=== PATIENT | male | born 2000 | race Caucasian/White ===

== ENCOUNTER 2022-04-10 17:38 | Emergency (ER) | payer OTHER, MEDICAID, SELFPAY ==
[2022-04-10 17:50] VITALS: BP 114/73; PULSE 83; RESP 18; TEMP 36.9; O2SAT 99
--- NOTE | 2022-04-10 19:13 | ED.GENADUL_ITS ---
Discharge Plan Disposition Patient Disposition: HOME Condition: Stable Discharge Details Clinical Impression: Laceration of arm Primary Care Provider: Unknown,Unknown ED Provider: Jenny Solis Home Meds and New Rx's Prescriptions: Continued testosterone cypionate 100 mg/mL Oil 50 mg IM DIRECTED Rx Instructions: as a single dose dextroamphetamine-amphetamine [Adderall] 30 mg Tablet 30 mg PO DAILY propranolol 10 mg Tablet 10 mg PO TID Discharge Instructions Instructions: Laceration (ED) Additional Instructions: suture removal in 10 days Keep wound clean and dry Ibuprofen and Tylenol as needed for pain Return spreading redness, fever, worsening pain Discharge Data Discharge Date/Time-TO BE ENTERED AT DEPARTURE: 04/10/22 19:35 Medical Decision Making Patient tolerated procedure without incident Suture removal in 10 days Return precautions discussed and patient expressed understanding Wound care provided by nursing staff Medical Records Medical records reviewed: Yes I reviewed the patient's medical records. Lab Data Lab results reviewed: Yes I reviewed the patient's lab results. HPI General Date/Time Provider Initiated Documentation: 04/10/22 18:17 . HPI Narrative: This 22-year-old male presents with laceration to left shoulder which occurred approximately 2 hours prior to arrival. Denies any additional injuries. Denies any strength or sensation change. Tetanus is reportedly up-to-date. Laceration occurred on a piece of sheet metal as an accident. Related Data Home Medications Medication Instructions Recorded Confirmed dextroamphetamine-amphetamine 30 30 mg PO DAILY 04/10/22 04/10/22 mg tablet (Adderall) propranolol 10 mg tablet 10 mg PO TID 04/10/22 04/10/22 testosterone cypionate 100 mg/mL 50 mg IM DIRECTED 04/10/22 04/10/22 intramuscular oil Allergies Allergy/AdvReac Type Severity Reaction Status Date / Time D and C red no.40 Allergy Unverified 04/10/22 17:56 General Stated Complaint: Laceration ARSH: 3 Review of Systems All systems reviewed & are unremarkable except as noted in HPI and below PFSH All Active Problems (Updated 04/10/22 @ 19:18 by TACHO Abreu) Laceration of arm (Acute) Social History Smoking/Tobacco Use Status: Never Smoking risk assessment performed?: Yes Alcohol Intake: never Drug use: Never Substance use type: does not use Do you feel safe at home: Yes Do you feel safe in your relationship?: Yes Exam Const General: cooperative, comfortable and no acute distress Orientation: alert and oriented x3 Extrem Shoulder/upper arm images: 1. Course Vital Signs Vital signs: Vital Signs Temperature 36.9 C 04/10/22 17:50 Pulse 83 04/10/22 17:50 Respiratory Rate 18 04/10/22 17:50 Blood Pressure 114/73 04/10/22 17:50 Pulse Oximetry 99 04/10/22 17:50 Temperature 36.9 C 04/10/22 17:50 Temperature Source Oral 04/10/22 17:50 Pulse 83 04/10/22 17:50 Respiratory Rate 18 04/10/22 17:50 Respiratory Effort Non-Labored 04/10/22 17:54 Blood Pressure 114/73 04/10/22 17:50 Blood Pressure Position Sitting 04/10/22 17:50 Pulse Oximetry 99 04/10/22 17:50 Oxygen Delivery Method Room Air 04/10/22 17:50 Oxygen Flow Rate 0 04/10/22 17:50 Pain Level 6 04/10/22 17:50 Procedures Laceration Laceration 1: Site: upper extremity Side (If applicable): left Size (cm): 2.5 Local Anesthetic: Lidocaine 1% Amount of anesthesia used (mL): 5 Pre-repair: wound explored and irrigated extensively Skin layer closed with: nylon Size (cm): 5-0 Number of sutures: 4 Technique: horizontal mattress Subcutaneous layer closed with: vicryl Size: 4-0 Number of sutures: 3 Technique: simple, interrupted
[2022-04-10 19:31] VITALS: BP 108/75; PULSE 67; RESP 14; TEMP 36.7; O2SAT 100
== END 2022-04-10 19:35 | disposition home or self-care (01) ==
PROVIDERS: Emergency Provider Physician Assistant
DX: S41.012A Laceration without foreign body of left shoulder, initial encounter (principal); W26.8XXA Contact with other sharp object(s), not elsewhere classified, initial encounter
CPT/HCPCS: 12031; 99281; 99282

== ENCOUNTER 2022-06-24 15:14 | Outpatient (REF) | payer OTHER, MEDICAID, SELFPAY ==
[2022-06-24 19:02] LABS: Abs Immature Grans 0.02 10^3/uL (0.0-0.06); Absolute Basophil Count 0.04 10^3/uL (0.0-0.2); Absolute Eosinophil Count 0.04 10^3/uL (0.0-0.7); Absolute Lymphocyte Count 1.68 10^3/uL (1.2-3.4); Absolute Monocyte Count 0.56 10^3/uL (0.1-0.8); Absolute Neutrophil Count 6.34 10^3/uL (1.2-6.7); Basophils % 0.5; Eosinophils % 0.5; HCT 52.2 % (40.0-50.0); HGB 17.5 g/dL (13.5-17.5); Immature Grans % 0.2; Lymphocytes % 19.4; MCH 30.2 pg (27.0-33.0); MCHC 33.5 % (32.0-36.0); MCV 90 fL (80-95); MPV 10.6 fL (8.0-11.0); Monocytes % 6.5; Neutrophils % 72.9; Platelet Count 370 10^3/uL (130-400); RBC 5.79 10^6/uL (4.36-5.78); RDW 11.8 % (11.8-14.1); RDW-SD 39.2 fL; WBC 8.68 10^3/uL (4.4-10.8)
[2022-06-24 19:25] LABS: ALT 14 U/L (16-63); AST 19 U/L (15-37); Albumin 4.9 g/dL (3.4-5.0); Alkaline Phosphatase 116 U/L (46-116); Anion Gap 9.5 mmol/L (3-11); BUN 11 mg/dL (7-18); Bilirubin, Total 0.4 mg/dL (0.2-1.0); CO2 29.5 mmol/L (21.0-32.0); CREATININE 1.1 mg/dL (0.70-1.30); Calcium 9.9 mg/dL (8.5-10.1); Chloride 101 mmol/L (98-107); Estimated GFR 98.56 (mL/min/1.73m2); FREE T4 0.84 ng/dL (0.76-1.46); Glucose 89 mg/dL (74-106); Potassium 3.8 mmol/L (3.5-5.1); Sodium 140 mmol/L (136-145); TSH 1.86 uIU/mL (0.36-3.74); Total Protein 8.3 g/dL (6.4-8.2)
[2022-06-26 13:28] LABS: ANA Interpretation Negative (Negative)
[2022-07-01 14:08] LABS: Testosterone, Free 28.7 ng/dL (5.25-20.7); Testosterone, Total 909 ng/dL (240-950)
== END 2022-06-24 15:15 | disposition home or self-care (01) ==
LOC: NCHCN 15:14
PROVIDERS: Visit Provider Nurse Practitioner Family
DX: Z87.890 Personal history of sex reassignment (principal); Z79.899 Other long term (current) drug therapy; F41.8 Other specified anxiety disorders; Z79.890 Hormone replacement therapy; M25.59 Pain in other specified joint
CPT/HCPCS: 80053; 84402; 84403; 84439; 84443; 85025; 86038

== ENCOUNTER 2022-08-13 16:35 | Outpatient (REF) | payer OTHER, MEDICAID, SELFPAY ==
[2022-08-13 18:44] LABS: Abs Immature Grans 0.01 10^3/uL (0.0-0.06); Absolute Basophil Count 0.03 10^3/uL (0.0-0.2); Absolute Eosinophil Count 0.07 10^3/uL (0.0-0.7); Absolute Lymphocyte Count 1.15 10^3/uL (1.2-3.4); Absolute Monocyte Count 0.42 10^3/uL (0.1-0.8); Absolute Neutrophil Count 4.57 10^3/uL (1.2-6.7); Basophils % 0.5; Eosinophils % 1.1; HCT 51.4 % (40.0-50.0); HGB 17.3 g/dL (13.5-17.5); Immature Grans % 0.2; Lymphocytes % 18.4; MCH 30.3 pg (27.0-33.0); MCHC 33.7 % (32.0-36.0); MCV 90 fL (80-95); MPV 10.8 fL (8.0-11.0); Monocytes % 6.7; Neutrophils % 73.1; Platelet Count 372 10^3/uL (130-400); RBC 5.71 10^6/uL (4.36-5.78); RDW 11.9 % (11.8-14.1); RDW-SD 39.3 fL; WBC 6.25 10^3/uL (4.4-10.8)
[2022-08-13 20:14] LABS: Hemoglobin A1C 4.8 % (<5.7)
[2022-08-21 13:54] LABS: Testosterone, Free 27.2 ng/dL (5.25-20.7); Testosterone, Total 975 ng/dL (240-950)
== END 2022-08-13 16:36 | disposition home or self-care (01) ==
LOC: NCHCN 16:35
PROVIDERS: Visit Provider Nurse Practitioner Family
DX: R55 Syncope and collapse (principal); Z79.890 Hormone replacement therapy; R59.0 Localized enlarged lymph nodes
CPT/HCPCS: 84402; 84403; 83036; 85025

== ENCOUNTER 2022-10-10 09:45 | Outpatient (RCR) | payer MEDICAID, SELFPAY ==
--- NOTE | 2022-10-10 09:45 | HOLTER_ITS ---
APPROVED REPORT Conclusion This is a 48-hour Holter monitor ordered for tachycardia and syncope Rhythm throughout was sinus. Average heart rate was 84. Minimum was 46, maximum 178 There were very rare isolated atrial premature beats There were no ventricular dysrhythmias There is no atrial fibrillation, no SVT, no high-grade AV block, no pauses greater than 3 seconds A total of 6 pages of symptoms was reported Overall symptoms of racing heartbeat appear to correspond to sinus tachycardia which was frequently p resent during waking hours and had rates ranging from 110-156
== END 2022-11-01 23:59 | disposition home or self-care (01) ==
LOC: CARDOPNVT 09:45
PROVIDERS: Visit Provider Nurse Practitioner Family
DX: R00.0 Tachycardia, unspecified (principal); R55 Syncope and collapse
CPT/HCPCS: 93225; 93226

== ENCOUNTER 2022-10-24 03:33 | Outpatient (CLI) | payer MEDICAID, SELFPAY ==
--- NOTE | 2022-10-24 | DI.US_ITS ---
APPROVED REPORT EXAM: Comprehensive 2D, Doppler, and color-flow Echocardiogram Patient Location: Out-Patient Special Delivery Worker: Maria C Lucia RDCS (AE) Indications: Tachycardia, near syncope Other Information Study Quality: Adequate Conclusion Normal left ventricular wall thickness and chamber size. Estimated ejection fraction is 55 to 60%. Wall motion is normal Normal right ventricular size and systolic function Both atria are normal in size Mildly thickened mitral leaflets with trace regurgitation Estimated right ventricular systolic pressure is 13 mmHg Wall motion Left Ventricle The left ventricle is normal size. The left ventricular systolic function is normal. The left ventric ular ejection fraction is within the normal range. There is normal left ventricular wall thickness. T here is normal LV segmental wall motion. There is no ventricular septal defect visualized. LVEF is 56 %. Right Ventricle The right ventricle is normal size. The right ventricular systolic function is normal. The RVSP is 13 .0 mmHg. Atria The left atrium size is normal. The right atrium size is normal. The interatrial septum is intact wit h no evidence for an atrial septal defect. Aortic Valve The aortic valve is normal in structure. Aortic valve is trileaflet. There is no aortic valvular sten osis. No aortic regurgitation is present. Mitral Valve Mildly thickened mitral leaflets No evidence of mitral valve stenosis. Trace mitral regurgitation. Tricuspid Valve The tricuspid valve is normal in structure. There is no tricuspid valve stenosis. Trace tricuspid reg urgitation. Pulmonic Valve The pulmonary valve is normal in structure. There is no pulmonic valvular stenosis. Trace pulmonic re gurgitation. Great Vessels The aortic root is normal in size. The ascending aorta is normal in size. Aortic arch is normal in ca liber. IVC is normal in size and collapses >50% with inspiration. Pericardium There is no pericardial effusion. 2D Dimensions IVSD d PLAX 0.74 cm F: 0.6-1.0 LV Vol A2C d MOD 88.3 mL LVPW d PLAX 0.77 cm F: 0.6 - 1.0 LV Vol A4C d MOD 85.5 mL LVID d PLAX 4.50 cm F: 3.8 - 5.2 LA Area A4C s MOD 11.86 cm2 LVDs 3.15 cm F: 2.2 - 3.5 LA Area A2C s MOD 14.61 cm2 Ao Root d 2.27 cm F: 2.7 - 3.3 LV EF A4C MOD 55.4 % RA Area A4C 7.57 cm2 LV EF A2C MOD 56.0 % Ao Asc Diam d 2.38 cm F: 2.3 - 3.1 LV EF Biplane MOD 54.9 % LV EF Teichholz 56.0 % SV 47.52 mL LVEF ([facility]) 54.86 % F: 54 - 74 LV Volume 86.63 mL F: 46 - 106 LV Volume Index 53.47 mL/m2 F: 29 - 61 LV Vol Biplane MOD 86.6 mL FS 29.10 % M-Mode TAPSE 1.60 cm (M/F) >1.7 LV Diastology MV E' medial 0.093 (>0.07 m/s) E/A Ratio 1.6 LV E/e MED 6.85 (<14) MV E Vmax 0.64 (0.4-1.3 m/s) MV E' lateral 0.174 (>0.1 m/s) MV A Vmax 0.40 (0.4-1.3 m/s) LV E/e LAT 3.65 (<14) MV E/A Ratio 1.44 MV E/E' medial 6.88 MV E/E' lateral 3.68 Aortic Valve LVOT Area 2.89 cm2 AoV Area Vmax 2.80 cm2 LVOT Vmax 0.95 m/s RODY Mean Marlo. 2.52 cm2 LVOT Mean Marlo. 0.62 m/s LVOT Peak Grad 3.6 mmHg LVOT Mean Grad 1.8 mmHg LVOT VTI 0.194 m LVOT Diam s 1.90 cm AoV Vmax 0.98 m/s Velocity Ratio 0.97 AoV Mean Marlo. 0.71 m/s AoV Peak Grad 3.9 mmHg LVOT SV 56.07 mL AoV Mean Grad 2.2 mmHg AoV VTI 0.199 m AoV Area VTI 2.81 cm2 Mitral Valve MV DT 147 (160-240 msec) MV PHT 43 msec MV Area PHT 5.16 cm2 MV VTI 0.209 m MV Area VTI 2.68 (4.0-6.0 cm2) Pulmonary Valve PV Vmax 0.83 (0.5-1.5 m/s) RVOT Peak Gr. 2.16 mmHg PV Peak Grad 2.7 mmHg RVOT Mean Gr. 1.05 mmHg PV Mean Grad 1.6 mmHg RVOT VTI 0.153 m PV VTI 0.175 m RVOT Vmax 0.74 m/s Tricuspid Valve TR Peak Grad 9.9 mmHg TR Vmax 1.58 m/s RA Pressure 3.00 mmHg RVSP (TR) 13.0 mmHg
== END 2022-10-24 03:53 ==
PROVIDERS: Visit Provider Nurse Practitioner Family
DX: R00.0 Tachycardia, unspecified (principal); R55 Syncope and collapse
CPT/HCPCS: 93306

== ENCOUNTER 2022-11-15 08:53 | Outpatient (RCR) | payer MEDICAID, SELFPAY ==
--- NOTE | 2022-11-15 08:45 | HOLTER_ITS ---
APPROVED REPORT Conclusion This is a 48-hour Holter monitor Rhythm throughout was sinus with an average heart rate of 78. Minimum was 45, maximum 139 There were no ventricular dysrhythmias There were rare atrial premature beats There was no atrial fibrillation no SVT no pauses greater than 3 seconds no high-grade AV block
== END 2022-12-01 23:59 | disposition home or self-care (01) ==
LOC: CARDOPNVT 08:53
PROVIDERS: Visit Provider Nurse Practitioner Family
DX: R55 Syncope and collapse (principal); R00.0 Tachycardia, unspecified
CPT/HCPCS: 93225; 93226

== ENCOUNTER 2023-01-02 14:10 | Outpatient (REF) | payer MEDICAID, SELFPAY ==
[2023-01-02 15:16] LABS: Bilirubin Negative (Negative); Blood Negative (Negative); Clarity Clear (Clear); Glucose Negative (Negative); Ketones Negative (Negative); Leukocyte Esterase Negative (Negative); Nitrite Negative (Negative); Urobilinogen 0.2 mg/dL (Up to 0.2)
== END 2023-01-02 14:11 | disposition home or self-care (01) ==
LOC: NCHCN 14:10
PROVIDERS: Visit Provider Nurse Practitioner Family
DX: R35.0 Frequency of micturition (principal); R30.0 Dysuria
CPT/HCPCS: 81003

== ENCOUNTER 2023-01-03 19:16 | Outpatient (REF) | payer MEDICAID, SELFPAY ==
[2023-01-03 19:30] LABS: HCT 48.4 % (36.0-46.0); HGB 16.2 g/dL (11.2-15.7); MCH 30.7 pg (27.0-33.0); MCHC 33.5 % (32.0-36.0); MCV 92 fL (80-95); MPV 10.2 fL (8.0-11.0); Platelet Count 347 10^3/uL (130-400); RBC 5.28 10^6/uL (3.93-5.22); RDW 12.5 % (11.7-14.6); RDW-SD 42.3 fL; WBC 6.64 10^3/uL (4.4-10.8)
[2023-01-03 19:49] LABS: ALT 26 U/L (14-59); AST 22 U/L (15-37); Albumin 4.5 g/dL (3.4-5.0); Alkaline Phosphatase 122 U/L (46-116); Anion Gap 5.9 mmol/L (3-11); BUN 10 mg/dL (7-18); Bilirubin, Total 0.6 mg/dL (0.2-1.0); CO2 30.1 mmol/L (21.0-32.0); Calcium 9.9 mg/dL (8.5-10.1); Chloride 102 mmol/L (98-107); Estimated GFR 82.71 (mL/min/1.73m2); Glucose 58 mg/dL (74-106); Potassium 3.9 mmol/L (3.5-5.1); Sodium 138 mmol/L (136-145); TSH (W/Ref FT4) 0.97 uIU/mL (0.36-3.74); Total Protein 7.3 g/dL (6.4-8.2)
[2023-01-12 14:45] LABS: Testosterone, Free 11.1 ng/dL (<0.13-1.08); Testosterone, Total 325 ng/dL (8-60)
== END 2023-01-03 19:17 | disposition home or self-care (01) ==
LOC: NCHCN 19:16
PROVIDERS: Visit Provider Nurse Practitioner Family
DX: L65.9 Nonscarring hair loss, unspecified (principal); Z79.890 Hormone replacement therapy; R00.0 Tachycardia, unspecified; R35.0 Frequency of micturition; Z87.890 Personal history of sex reassignment; Z79.899 Other long term (current) drug therapy
CPT/HCPCS: 80053; 84402; 84403; 85027; 84443

== ENCOUNTER 2023-01-27 08:20 | Outpatient (CLI) | payer MEDICAID, SELFPAY | END 2023-01-27 08:21 | disposition home or self-care (01) | PROVIDERS: Visit Provider Nurse Practitioner Family | DX: R00.0 Tachycardia, unspecified (principal) | CPT/HCPCS: 93270 ==

== ENCOUNTER 2023-02-06 12:38 | Outpatient (REF) | payer MEDICAID, SELFPAY ==
[2023-02-10 14:26] LABS: IgA 94 mg/dL (85-499); Interpretation (See Note); Tissue Transglutaminase IgA <1.2 U/mL (<4.0)
== END 2023-02-06 12:39 | disposition home or self-care (01) ==
LOC: NCHCN 12:38
PROVIDERS: Visit Provider Nurse Practitioner Family
DX: R19.7 Diarrhea, unspecified (principal)
CPT/HCPCS: 82784; 83516

== ENCOUNTER 2023-02-07 18:39 | Emergency (ER) | payer MEDICAID, SELFPAY ==
--- NOTE | 2023-02-07 18:30 | RT.EKG_ITS ---
APPROVED REPORT Exam: Resting ECG Reason for Exam: Tachycardia Patient Location: E HR:102 bpm ECG Measurements Heart Rate 102 AXIS FL 134 P 51 QRSd 87 QRS 79 QT 341 T 40 QTc 445 Conclusion Sinus tachycardia...rate> 99 sinus tachycardia, conider inferior lateral st depressions
[2023-02-07 18:43] VITALS: BP 133/79; PULSE 130; RESP 22; TEMP 36.6; O2SAT 99
--- NOTE | 2023-02-07 19:00 | DI.CT_ITS ---
Exam(s) CT CHEST PE CTA EXAM: CT CHEST PE CTA CLINICAL HISTORY: tachycardia, near syncope, sob, abdnormal ekg. TECHNIQUE: Imaging Protocol: Axial CT angiography was performed with multi-slice acquisition and mu lti-planar reconstructions as well as axial, coronal and sagittal MIP reconstructions. CONTRAST MATERIAL: Intravenous: Omnipaque 350 Contrast volume:100 ml COMPARISON: No exams were available for comparison FINDINGS: Pulmonary Arteries: No evidence of filling defect to suggest pulmonary emboli. Tracheobronchial tree: Patent where visualized. Mediastinum and Andreia: No dominant adenopathy or fluid collection. Pulmonary parenchyma: No consolidation or dominant measurable mass. Pleura: No effusion or pneumothorax. Heart: The heart is not dilated. No coronary artery calcifications are seen. Aorta: Thoracic aorta non-dilated. No aneurysm. No dissection. Upper abdomen: Unremarkable. Bones: Unremarkable for age. IMPRESSION: No evidence of pulmonary embolism. No pulmonary acute abnormality. RADIATION DOSE DELIVERED: 292.22mGy.cm Total DLP DATA REPOSITORY: All CT scans at this facility are submitted to the National Radiology Data Registry (NRDR) Dose Index Registry (DIR) with the [employer] (ACR). RADIATION OPTIMIZATION: All CT scans at this facility use at least one of these dose optimization te chniques: automated exposure control; mA and/or kV adjustment per patient size (includes targeted exa ms where dose is matched to clinical indication); or iterative reconstruction.
--- NOTE | 2023-02-07 19:14 | W.ED.GENAD ---
Discharge Plan Disposition Patient Disposition: Home Condition: Improving Discharge Details Chief Complaint: Arrhythmia Clinical Impression: Hypokalemia, Tachycardia Primary Care Provider: Ginger Martinez ED Provider: Luis A Jurado Home Meds and New Rx's Prescriptions: No Action testosterone cypionate 100 mg/mL Oil 50 mg IM DIRECTED Rx Instructions: as a single dose dextroamphetamine-amphetamine [Adderall] 30 mg Tablet 30 mg PO DAILY Rx Instructions: no longer taking propranolol 10 mg Tablet 10 mg PO TID PRN fluoxetine 20 mg Tablet 20 mg PO DAILY metoprolol tartrate 25 mg Tablet 25 mg PO DAILY Zyrtec 10 mg Capsule 10 mg PO DAILY Discharge Instructions Instructions: Hypokalemia (ED) Additional Instructions: Please follow-up with your primary care physician and cardiology. Please return to the emergency department for any worsening symptoms Medical Decision Making 23-year-old trans male presents with recurrent palpitations shortness of breath paresthesias lightheadedness has been ongoing for weeks to months currently undergoing Holter monitor evaluation, lightheadedness and symptomatology developed while standing at work this evening at [employer] per partner patient's skin color also changes during these events to a purple color involving the chest and lower extremities. No history of coronary disease no history of thromboembolic disease. No recent travel or hospitalization. Patient is alert oriented interactive no respiratory distress lungs clear bilaterally, sinus tachycardia on monitor and EKG with evidence of depressions inferior and anterior leads consider slight elevation in aVR. Must consider PE versus pericarditis versus myocarditis versus electrolyte abnormality versus orthostatic versus POTS versus less likely infection. Screening labs imaging fluids close reassessment 21: 56 likely resolving dehydration hypokalemia. Feeling much better. Heart rate now 86 bpm. Following up closely with primary care and cardiology for Holter monitor interpretation HPI General Date/Time Provider Initiated Documentation: 02/07/23 18:45. HPI Narrative: 23-year-old trans male presents with recurrent tachycardia lightheadedness shortness of breath paresthesias to fingers and face and skin changes characterized by purple discoloration of chest and legs during events, worse when standing, currently undergoing Holter monitor. Has had extensive work-up in the past without definitive diagnosis. No prior CT scan per patient. Related Data Home Medications Medication Instructions Recorded Confirmed dextroamphetamine-amphetamine 30 30 mg PO DAILY 04/10/22 04/10/22 mg tablet (Adderall) propranolol 10 mg tablet 10 mg PO TID PRN 04/10/22 02/07/23 testosterone cypionate 100 mg/mL 50 mg IM DIRECTED 04/10/22 02/07/23 intramuscular oil cetirizine 10 mg capsule (Zyrtec) 10 mg PO DAILY 02/07/23 02/07/23 fluoxetine 20 mg tablet 20 mg PO DAILY 02/07/23 02/07/23 metoprolol tartrate 25 mg tablet 25 mg PO DAILY 02/07/23 02/07/23 Allergies Allergy/AdvReac Type Severity Reaction Status Date / Time aloe vera Allergy Hives Unverified 02/07/23 18:55 D and C red no.40 Allergy Unverified 02/07/23 18:55 General Stated Complaint: Arrhythmia ARSH: 3 Review of Systems Narrative: Review of Systems Constitutional: negative Eyes: negative ENT: negative Cardiovascular: Palpitations Respiratory: Shortness of breath Gastrointestinal: negative : negative Musculoskeletal: negative Skin: negative Neurologic: Paresthesias Psych: negative PFSH All Active Problems (Updated 02/07/23 @ 21:57 by Luis A Jurado MD) Hypokalemia (Acute) Tachycardia (Acute) Social History Smoking/Tobacco Use Status: Never Smoking risk assessment performed?: Yes Alcohol Intake: never Drug use: Never Substance use type: does not use Housing: apartment Do you feel safe at home: Yes Do you feel safe in your relationship?: Yes Exam Narrative Exam Narrative: Physical Examination General: alert, awake, cooperative, resting comfortably, no acute distress HEENT: normocephalic, atraumatic; PERRL, EOM intact, conjunctiva normal; no nasal discharge; moist mucous membranes, oral and pharyngeal mucosa normal, tolerating secretions Neck: supple, trachea midline; full ROM Chest: normal to inspection Respiratory: normal respiratory effort, speaking in full sentences, clear to auscultation, no wheezing, rales or rhonchi Cardiac: Tachycardia, regular rhythm, S1S2 intact, no murmurs rubs or gallops GI: abdomen soft, non-tender, non-distended; no palpable mass or hepatosplenomegaly Skin: no lesions, rashes or trauma appreciated Neuro: AAOx3, normal speech, moving all extremities Extremities: No peripheral edema Psych: Appropriate mood and affect Course Vital Signs Vital signs: Vital Signs Temperature 36.6 C 02/07/23 18:43 Pulse 130 H 07/07/23 18:43 Respiratory Rate 22 02/07/23 18:43 Blood Pressure 133/79 02/07/23 18:43 Pulse Oximetry 99 02/07/23 18:43 Temperature 36.6 C 02/07/23 18:43 Temperature Source Oral 02/07/23 18:43 Pulse 130 H 02/07/23 18:43 Respiratory Rate 22 02/07/23 18:43 Blood Pressure 133/79 02/07/23 18:43 Blood Pressure Position Supine 02/07/23 18:43 Pulse Oximetry 99 02/07/23 18:43 Oxygen Delivery Method Room Air 02/07/23 18:43 Oxygen Flow Rate 0 02/07/23 18:43 Pain Level 0 02/07/23 18:43
[2023-02-07 19:35] LABS: Bilirubin Negative (Negative); Blood Negative (Negative); Clarity Clear (Clear); Glucose Negative (Negative); Ketones Trace mg/dL (Negative); Leukocyte Esterase Trace (Negative); Nitrite Negative (Negative)
[2023-02-07] MEDS: Normal Saline - Diluent 50 ML VIAL IJ (19:37)
[2023-02-07] MEDS: Omnipaque 350 MG/ML 100 ML BTL IJ (19:37)
[2023-02-07 19:42] LABS: Bacteria Few HPF (Negative); C & S Indicated? Yes; Casts Negative LPF (Negative); Crystals Negative HPF (Negative); Epithelial Cells Few HPF (Negative); Mucus Negative (Negative); RBC 0-2 HPF (0-2)
[2023-02-07 19:55] LABS: Abs Immature Grans 0.01 10^3/uL (0.0-0.06); Absolute Basophil Count 0.03 10^3/uL (0.0-0.2); Absolute Eosinophil Count 0.12 10^3/uL (0.0-0.7); Absolute Lymphocyte Count 1.64 10^3/uL (1.2-3.4); Absolute Monocyte Count 0.75 10^3/uL (0.1-0.8); Absolute Neutrophil Count 6.06 10^3/uL (1.2-6.7); Basophils % 0.3; Eosinophils % 1.4; HCT 47.6 % (36.0-46.0); HGB 16.5 g/dL (11.2-15.7); Immature Grans % 0.1; MCH 30.8 pg (27.0-33.0); MCHC 34.7 % (32.0-36.0); MCV 89 fL (80-95); MPV 9.4 fL (8.0-11.0); Monocytes % 8.7; Neutrophils % 70.5; Platelet Count 319 10^3/uL (130-400); RBC 5.35 10^6/uL (3.93-5.22); RDW 11.9 % (11.7-14.6); RDW-SD 38.5 fL; WBC 8.61 10^3/uL (4.4-10.8)
[2023-02-07 20:08] LABS: PTT Activated 25.9 sec (21.5-31.9); Prothrombin Time 10.4 sec (9.3-11.0)
--- NOTE | 2023-02-07 20:09 | DI.VRAD_ITS ---
PROCEDURE INFORMATION: Exam: CTA Chest With Contrast Exam date and time: 02/07/2023 19:32 Age: 23 years old Clinical indication: Other: Tachcardia, near sycope, SOB, abnormal ekg; Prior surgery; Surgery date: 6+ months; Surgery type: Top surgery TECHNIQUE: Imaging protocol: Computed tomographic angiography of the chest with contrast. Exam focused on the arteries. 3D rendering (Not supervised by radiologist): MIP and/or 3D reconstructed images were created by the technologist. Contrast material: 350; Contrast volume: 100 ml; Contrast route: INTRAVENOUS (IV); COMPARISON: No relevant prior studies available. FINDINGS: Pulmonary arteries: No pulmonary emboli. Aorta: No aortic aneurysm. No aortic dissection. Lungs: Motion artifact in the lungs. No airspace consolidation. No suspicious pulmonary nodules or mass lesions. Pleural spaces: No pneumothorax. No pleural effusion. Heart: No cardiomegaly. No pericardial effusion. Lymph nodes: No enlarged lymph nodes. Bones/joints: No acute fracture. Soft tissues: Bilateral mastectomy. IMPRESSION: No pulmonary emboli are seen. No focal pathology Dictated and Authenticated by: Tish Franklin MD. Ordering:BIPIN Gunn MD
[2023-02-07] MEDS: Normal Saline 1,000 ML 1000 ML IV (20:18)
[2023-02-07 20:19] LABS: ALT 17 U/L (14-59); AST 20 U/L (15-37); Albumin 4.5 g/dL (3.4-5.0); Alkaline Phosphatase 114 U/L (46-116); BUN 15 mg/dL (7-18); Bilirubin, Total 0.3 mg/dL (0.2-1.0); CREATININE 1.1 mg/dL (0.55-1.02); Calcium 9.1 mg/dL (8.5-10.1); Chloride 102 mmol/L (98-107); Estimated GFR 73.31 (mL/min/1.73m2); Glucose 99 mg/dL (74-106); Magnesium 1.8 mg/dL (1.8-2.4); NT-proBNP 57 pg/mL (<300); Sodium 141 mmol/L (136-145); TSH (W/Ref FT4) 3.65 uIU/mL (0.36-3.74); Total Protein 7.6 g/dL (6.4-8.2); Troponin I < 50 ng/L (<or=60)
[2023-02-07] MEDS: Potassium Chloride 10 MEQ TABCR PO (20:50)
[2023-02-07] MEDS: POTASSIUM CHLORIDE 10 MEQ/100 ML BAG 100 MEQ IVPB (20:51)
[2023-02-07 22:00] VITALS: BP 102/54; PULSE 69; RESP 16; TEMP 36.6; O2SAT 97
--- NOTE | 2023-02-07 22:00 | RT.EKG_ITS ---
APPROVED REPORT Exam: Resting ECG Reason for Exam: discharge Patient Location: E HR:60 bpm ECG Measurements Heart Rate 60 AXIS IA 143 P 46 QRSd 82 QRS 78 QT 399 T 40 QTc 398 Conclusion Sinus rhythm...normal P axis, V-rate 60- 99 Atrial premature complex...SV complex w/ short R-R interval No STEMI Normal Electrocardiogram
== END 2023-02-07 22:16 | disposition home or self-care (01) ==
PROVIDERS: Emergency Provider Emergency Medicine; PCP Nurse Practitioner Family
DX: E87.6 Hypokalemia (principal); R00.0 Tachycardia, unspecified; R06.02 Shortness of breath
CPT/HCPCS: 71275; 80053; 80307; 81025; 93005; 96365; 99284; 81003; 81015; 83735; 83880; 84443; 84484; 85025; 85610; 85730; 87086; 93010; J3480; J3490

== ENCOUNTER 2023-02-09 12:34 | Outpatient (REF) | payer MEDICAID, SELFPAY ==
[2023-02-09 13:26] LABS: C Diff PCR Negative (Negative)
[2023-02-11 19:47] LABS: Campylobacter PCR Negative (Negative); Salmonella PCR Negative (Negative); Shiga Toxin PCR Negative (Negative); Shigella/Enteroinvasive Ecoli Negative (Negative)
== END 2023-02-09 12:35 | disposition home or self-care (01) ==
LOC: NCHCN 12:34
PROVIDERS: PCP Nurse Practitioner Family; Visit Provider Nurse Practitioner Family
DX: R19.7 Diarrhea, unspecified (principal)
CPT/HCPCS: 87493; 87505

== ENCOUNTER 2023-02-14 15:17 | Outpatient (REF) | payer MEDICAID, SELFPAY ==
[2023-02-14 15:50] LABS: Potassium 4.3 mmol/L (3.5-5.1)
[2023-02-14 15:54] LABS: Abs Immature Grans 0.02 10^3/uL (0.0-0.06); Absolute Basophil Count 0.05 10^3/uL (0.0-0.2); Absolute Eosinophil Count 0.22 10^3/uL (0.0-0.7); Absolute Lymphocyte Count 1.73 10^3/uL (1.2-3.4); Absolute Monocyte Count 0.53 10^3/uL (0.1-0.8); Absolute Neutrophil Count 3.63 10^3/uL (1.2-6.7); Basophils % 0.8; Eosinophils % 3.6; HCT 47.5 % (36.0-46.0); HGB 16.3 g/dL (11.2-15.7); Immature Grans % 0.3; MCHC 34.3 % (32.0-36.0); MCV 91 fL (80-95); MPV 10.5 fL (8.0-11.0); Monocytes % 8.6; Neutrophils % 58.7; Platelet Count 319 10^3/uL (130-400); RBC 5.25 10^6/uL (3.93-5.22); RDW-SD 40.1 fL; WBC 6.18 10^3/uL (4.4-10.8)
== END 2023-02-14 15:18 | disposition home or self-care (01) ==
LOC: NCHCN 15:17
PROVIDERS: PCP Nurse Practitioner Family; Visit Provider Nurse Practitioner Family
DX: E87.6 Hypokalemia (principal); R21 Rash and other nonspecific skin eruption
CPT/HCPCS: 84132; 85025

== ENCOUNTER 2023-03-03 13:20 | Outpatient (CLI) | payer MEDICAID, SELFPAY ==
--- NOTE | 2023-03-03 13:31 | W.CARDEVENT ---
Date of service: 03/03/23 Time of Service: 13:31 Cardiac Event Recorder Referring Provider:: Ginger Martinez Indications:: Tachycardia and syncope Cardiac Event Note: This is a cardiac event monitor. Patient was monitored for 29 days and 15 hours Rhythm throughout was sinus. Average heart rate was 66. Minimum was 50, maximum was 144 There were no ventricular or supraventricular dysrhythmias. There was no atrial fibrillation or SVT. There was no high-grade AV block, no pauses greater than 3 seconds Multiple patient symptoms were reported. The vast majority corresponded to sinus rhythm with heart rates 70-80. Rarely symptoms corresponded to sinus tachycardia with heart rates 10 5-1 10.
== END 2023-03-03 13:21 | disposition home or self-care (01) ==
LOC: CARDOPNVT 13:20
PROVIDERS: PCP Nurse Practitioner Family; Visit Provider Internal Medicine Cardiovascular Disease
DX: R55 Syncope and collapse (principal); R00.0 Tachycardia, unspecified

== ENCOUNTER 2023-05-19 11:56 | Outpatient (REF) | payer OTHER, SELFPAY ==
[2023-05-19 16:16] LABS: HCT 49.8 % (36.0-46.0); HGB 16.6 g/dL (11.2-15.7); MCH 30.2 pg (27.0-33.0); MCHC 33.3 % (32.0-36.0); MCV 91 fL (80-95); MPV 10.6 fL (8.0-11.0); Platelet Count 335 10^3/uL (130-400); RBC 5.49 10^6/uL (3.93-5.22); RDW 11.7 % (11.7-14.6); RDW-SD 39.3 fL; WBC 5.12 10^3/uL (4.4-10.8)
[2023-06-06 10:09] LABS: Testosterone, Free 22.5 ng/dL (<0.13-1.08); Testosterone, Total 611 ng/dL (8-60)
== END 2023-05-19 11:57 | disposition home or self-care (01) ==
LOC: NCHCN 11:56
PROVIDERS: PCP Nurse Practitioner Family; Visit Provider Nurse Practitioner Family
DX: F64.9 Gender identity disorder, unspecified (principal); Z51.81 Encounter for therapeutic drug level monitoring
CPT/HCPCS: 84402; 84403; 85027

== ENCOUNTER 2023-08-22 20:05 | Emergency (ER) | payer OTHER, SELFPAY ==
[2023-08-22 20:09] VITALS: BP 145/89; PULSE 77; RESP 18; TEMP 36.5; O2SAT 99
[2023-08-22 20:17] VITALS: RESP 18
--- NOTE | 2023-08-22 20:30 | DI.RAD_ITS ---
Exam(s) XR CHEST 2V PA LATERAL EXAM: XR CHEST 2V PA LATERAL CLINICAL HISTORY: low O2 sat at home TECHNIQUE: 2D digital imaging was performed. COMPARISON: No exams were available for comparison FINDINGS: HEART: Normal size. Aorta: Not dilated. PULMONARY VASCULATURE: Normal. LUNGS: Clear. PLEURAL SPACE: No pleural effusion or pneumothorax. BONE:Unremarkable for age. Soft tissues: Unremarkable. IMPRESSION: No acute abnormality. DATA REPOSITORY: RADIATION DOSE DELIVERED:
--- NOTE | 2023-08-22 20:44 | W.ED.GENAD ---
HPI General Mode of arrival: ambulatory. Date/Time Provider Initiated Documentation: 08/22/23 20:16. Limitations to Documentation: no limitations. Information obtained by: patient and old records reviewed. HPI Narrative: 23yo FTM currently being worked up for POTS, tilt table test scheduled, presenting on instruction of PCP. He reports that he has noted episodes of low oxygen saturation (down to mid 80's) for the past two weeks. States he called his PCP two weeks ago, received a phone call from them today advising him to present to the ED for evaluation. He does report some shortness of breath, does not seem to be related temporally to his episodes of hypoxia. He does tend to check his O2 when he is felling generally unwell (lightheaded, like his vision is going black). Has these spells frequently, more often when getting up and down a lot. Wore a cardiac event monitor with nothing of significance noted. He is otherwise in his usual state of health with no fevers, chills, rash, nasuea, vomiting, abdominal pain, chest pain, or other concerns. Related Data Home Medications Medication Instructions Recorded Confirmed propranolol 10 mg tablet 10 mg PO TID PRN 04/10/22 08/22/23 testosterone cypionate 100 mg/mL 50 mg IM DIRECTED 04/10/22 08/22/23 intramuscular oil cetirizine 10 mg capsule (Zyrtec) 10 mg PO DAILY 02/07/23 08/22/23 fluoxetine 20 mg tablet 30 mg PO DAILY 02/07/23 08/22/23 metoprolol tartrate 25 mg tablet 25 mg PO DAILY 02/07/23 08/22/23 bupropion HCl 150 mg tablet,12 hr 150 mg PO DAILY 06/20/23 08/22/23 sustained-release (Wellbutrin SR) hydroxyzine HCl 25 mg tablet 25 mg PO BID PRN 06/20/23 08/22/23 Allergies Allergy/AdvReac Type Severity Reaction Status Date / Time aloe vera Allergy Hives Unverified 08/22/23 20:15 animal dander Allergy Verified 08/22/23 20:15 D and C red no.40 Allergy Unverified 08/22/23 20:15 gluten Allergy Verified 08/22/23 20:15 Gold Salts Allergy Verified 08/22/23 20:15 house dust Allergy Verified 08/22/23 20:15 mold Allergy Uncoded 08/22/23 20:15 General Stated Complaint: GenMedical ARSH: 3 Review of Systems Narrative: see HPI Exam Narrative Exam Narrative: General: Alert, well appearing, well nourished, in no acute distress. Head: Normocephalic, atraumatic Neck: Trachea midline, ?Neck supple. Cardiac: ?RRR, no murmurs appreciated Resp: No respiratory distress. CTAB. Abd: ?Non-distended. Extremities: ?No deformities.? No peripheral edema. Neurologic: GCS 15. ? Moves all extremities freely against gravity Course Vital Signs Vital signs: Vital Signs Temperature 36.5 C 08/22/23 20:09 Pulse 77 08/22/23 20:09 Respiratory Rate 18 08/22/23 20:09 Blood Pressure 145/89 H 08/22/23 20:09 Pulse Oximetry 99 08/22/23 20:09 Temperature 36.5 C 08/22/23 20:09 Temperature Source Skin 08/22/23 20:09 Pulse 77 08/22/23 20:09 Respiratory Rate 18 08/22/23 20:17 Respiratory Effort Normal 08/22/23 20:17 Respiratory Depth Normal 08/22/23 20:17 Respiratory Pattern Normal 08/22/23 20:17 Blood Pressure 145/89 H 08/22/23 20:09 Blood Pressure Position Sitting 08/22/23 20:09 Pulse Oximetry 99 08/22/23 20:09 Oxygen Delivery Method Room Air 08/22/23 20:09 Oxygen Flow Rate 0 08/22/23 20:09 Medical Decision Making 23yo FTM currently being worked up for POTS, tilt table test scheduled, presenting on instruction of PCP for concern for hypoxia. He reports that he has noted episodes of low oxygen saturation (down to mid 80's) for the past two weeks. States he called his PCP two weeks ago, received a phone call from them today advising him to present to the ED for evaluation. [facility] records reviewed including cardiology report on event monitor (no significant events). Vital signs reassuring on arrival, normal HR and O2 sat. Unclear reliability of home O2 monitor, transient low perfusion with symptomatic POTS also possible. Current planned outpatient workup seems appropriate. VS and exam here not concerning for pulmonary embolism; would not get dimer or CT imaging. Out of abundance of caution will get CXR here; independently reviewed, no focal pneumonia or pneumothorax on my view, agree with radiology read below. Discharged home to continued PCP followup. Discharge instructions and return precautions were reviewed with patient who verbalized understanding. All questions were answered and he is in full agreement with the plan. Medical Records Medical records reviewed: Yes I reviewed the patient's medical records. Imaging Data Radiologic Study: Imaging: X-Ray Radiologist's impression: IMPRESSION: No acute findings. Quality:SDOH Health Related Social Needs: No Data to Display PFSH All Active Problems (Updated 08/22/23 @ 21:03 by Parris Hair MD) Near syncope (Acute) Medical History (Updated 08/22/23 @ 21:03 by Parris Hair MD) Anxiety Menstrual disorder Headache ADHD Seasonal allergies Gender identity disorder, unspecified Other abnormal auditory perceptions, bilateral Hx of head injury Sensorineural hearing loss (SNHL) of both ears Hyperlipidemia Hormone replacement therapy Transgender Intermenstrual bleeding Social phobia History of COVID-19 Flexural eczema Multiple joint pain Syncope and collapse Lymphadenopathy, axillary Skin lesions Near syncope Hair loss Urinary frequency Chronic diarrhea Rash and other nonspecific skin eruption Eczema Medication monitoring encounter History of gluten intolerance Surgical History (Updated 06/20/23 @ 14:50 by Shabana Stewart) H/O: hysterectomy Social History Smoking/Tobacco Use Status: Never Smoking risk assessment performed?: Yes Alcohol Intake: never Drug use: Never Substance use type: does not use Housing: apartment Do you feel safe at home: Yes Do you feel safe in your relationship?: Yes Discharge Plan Disposition Patient Disposition: Home Condition: Good Discharge Details Clinical Impression: Near syncope Primary Care Provider: Ginger Martinez ED Provider: Parris Hair Home Meds and New Rx's Prescriptions: Continued bupropion HCl [Wellbutrin SR] 150 mg tablet sustained-release 12 hr 150 mg PO DAILY hydroxyzine HCl 25 mg tablet 25 mg PO BID PRN testosterone cypionate 100 mg/mL Oil 50 mg IM DIRECTED Rx Instructions: as a single dose propranolol 10 mg Tablet 10 mg PO TID PRN fluoxetine 20 mg Tablet 30 mg PO DAILY metoprolol tartrate 25 mg Tablet 25 mg PO DAILY Zyrtec 10 mg Capsule 10 mg PO DAILY Discharge Instructions Instructions: Near Syncope (ED) Additional Instructions: Keep your appointment for your tilt-table test. Call your PCP on Friday to schedule an appointment to followup on your visit here. Return to the emergency department for new or worsening symptoms. Referrals: Ginger Martinez [Primary Care Provider] -
--- NOTE | 2023-08-22 21:00 | DI.VRAD_ITS ---
PROCEDURE INFORMATION: Exam: XR Chest Exam date and time: 08/22/2023 8:47 PM Age: 23 years old Clinical indication: Other: Low o2 sat at home TECHNIQUE: Imaging protocol: Radiologic exam of the chest. Views: 2 views. COMPARISON: CT CHEST PE CTA 02/07/2023 7:32 PM FINDINGS: Lungs: Lungs are adequately inflated and symmetric. No focal consolidation or evidence of pulmonary edema. Pleural spaces: No pleural effusion. No pneumothorax. Heart/Mediastinum: Cardiomediastinal contours within normal limits. Bones/joints: No acute osseous finding. IMPRESSION: No acute findings. Dictated and Authenticated by: Glenn Ingram MD. Ordering:PIA Nye MD
== END 2023-08-22 21:28 | disposition home or self-care (01) ==
PROVIDERS: Emergency Provider Student in an Organized Health Care Education/Training Program; PCP Nurse Practitioner Family
DX: R55 Syncope and collapse (principal)
CPT/HCPCS: 99283; 71046

== ENCOUNTER 2023-08-29 14:59 | Outpatient (CLI) | payer OTHER, SELFPAY ==
[2023-09-01 17:42] LABS: Almond IgE <0.10 kU/L (<0.70); Aspergillus Fumigatus IgE <0.10 kU/L (<0.70); Baker's Yeast, IgE <0.10 kU/L (<0.70); Barley, IgE <0.10 kU/L (<0.70); Beef IgE <0.10 kU/L (<0.70); Brazil Nut IgE <0.10 kU/L (<0.70); Broccoli IgE <0.10 kU/L (<0.70); Cashew IgE <0.10 kU/L (<0.70); Cocklebur IgE <0.10 kU/L (<0.70); Cockroach IgE <0.10 kU/L (<0.70); Coconut IgE <0.10 kU/L (<0.70); Corn-Food IgE <0.10 kU/L (<0.70); Cottonwood IgE <0.10 kU/L (<0.70); D Pteronyssinus IgE <0.10 kU/L (<0.70); Eastern Sycamore IgE <0.10 kU/L (<0.70); Epicoccum purpurascens IgE <0.10 kU/L (<0.70); Giant Ragweed IgE <0.10 kU/L (<0.70); Hazelnut-Food IgE <0.10 kU/L (<0.70); Onion, IgE 0.26 kU/L (<0.70); Pecan-Food IgE <0.10 kU/L (<0.70); Pistachio, IgE <0.10 kU/L (<0.70); Red Sorrel IgE <0.10 kU/L (<0.70); Rough Pigweed IgE <0.10 kU/L (<0.70); Scallop IgE <0.10 kU/L (<0.70); Silver Birch IgE 0.11 kU/L (<0.70); Soybean IgE <0.10 kU/L (<0.70); Stemphyllium IgE <0.10 kU/L (<0.70); Strawberry, IgE <0.10 kU/L (<0.70); Walnut Tree IgE <0.10 kU/L (<0.70); Walnut-Food IgE <0.10 kU/L (<0.70); White Potato, IgE <0.10 kU/L (<0.70); Wormwood IgE <0.10 kU/L (<0.70)
[2023-09-01 19:12] LABS: Alternaria Tenuis IgE <0.10 kU/L (<0.70); Banana, IgE 0.44 kU/L (<0.70); Bermuda Grass IgE <0.10 kU/L (<0.70); Black/White Pepper IgE <0.10 kU/L (<0.70); Cacao/Cocoa, IgE <0.10 kU/L (<0.70); Cat Epithelium IgE <0.10 kU/L (<0.70); Cinnamon, IgE <0.10 kU/L (<0.70); Cladosporium IgE <0.10 kU/L (<0.70); Clam IgE <0.10 kU/L (<0.70); Crab IgE <0.10 kU/L (<0.70); D Farinae IgE <0.10 kU/L (<0.70); Dog Dander IgE <0.10 kU/L (<0.70); Elm IgE 0.15 kU/L (<0.70); Fusarium moniliforme, IgE <0.10 kU/L (<0.70); Lamb's Quarter IgE <0.10 kU/L (<0.70); Lobster IgE <0.10 kU/L (<0.70); Milk, IgE <0.10 kU/L (<0.70); Oyster IgE <0.10 kU/L (<0.70); Peanut IgE 0.17 kU/L (<0.70); Penicillium chrysogenum IgE <0.10 kU/L (<0.70); Short Ragweed IgE <0.10 kU/L (<0.70); Shrimp IgE <0.10 kU/L (<0.70); Timothy Grass IgE <0.10 kU/L (<0.70)
[2023-09-01 19:21] LABS: Egg Whole IgE <0.10 kU/L (<0.70)
[2023-09-03 17:57] LABS: CLASS 0; Cedar Red IgE <0.10 kU/L (<0.35); Rhodotorula IgE <0.35 kU/L (<0.35)
== END 2023-08-29 15:00 | disposition home or self-care (01) ==
PROVIDERS: PCP Nurse Practitioner Family; Visit Provider Physician Assistant
DX: J30.2 Other seasonal allergic rhinitis (principal); L20.82 Flexural eczema; Z91.018 Allergy to other foods; L98.9 Disorder of the skin and subcutaneous tissue, unspecified
CPT/HCPCS: 36415; 86003

== ENCOUNTER 2023-10-21 12:03 | Outpatient (REF) | payer OTHER, SELFPAY ==
[2023-10-21 15:45] LABS: Bilirubin Small (Negative); Blood Negative (Negative); Clarity Turbid (Clear); Glucose Negative (Negative); Ketones 40 mg/dL (Negative); Leukocyte Esterase Trace (Negative); Nitrite Negative (Negative); Specific Gravity 1.025 (1.005-1.025)
[2023-10-21 15:46] LABS: HCT 49.5 % (36.0-46.0); HGB 16.6 g/dL (11.2-15.7); MCH 30.2 pg (27.0-33.0); MCHC 33.5 % (32.0-36.0); MCV 90 fL (80-95); MPV 10.2 fL (8.0-11.0); Platelet Count 346 10^3/uL (130-400); RDW 11.1 % (11.7-14.6); RDW-SD 37.1 fL; WBC 5.98 10^3/uL (4.4-10.8)
[2023-10-21 16:08] LABS: ALT 24 U/L (14-59); AST 20 U/L (15-37); Albumin 4.7 g/dL (3.4-5.0); Alkaline Phosphatase 102 U/L (46-116); Anion Gap 13.4 mmol/L (3-11); BUN 17 mg/dL (7-18); Bilirubin, Total 0.8 mg/dL (0.2-1.0); CO2 26.6 mmol/L (21.0-32.0); Calcium 9.8 mg/dL (8.5-10.1); Chloride 103 mmol/L (98-107); Glucose 83 mg/dL (74-106); Potassium 3.9 mmol/L (3.5-5.1); Sodium 143 mmol/L (136-145); Total Protein 7.7 g/dL (6.4-8.2)
[2023-10-21 16:09] LABS: Bacteria Negative HPF (Negative); C & S Indicated? No; Crystals Many Amorphous HPF (Negative); Epithelial Cells Rare HPF (Negative); Mucus Negative (Negative); RBC Negative HPF (0-2); WBC 0-2 HPF (0-5)
[2023-10-21 16:33] LABS: Amylase 39 U/L (25-115); Lipase 43 U/L (16-77)
== END 2023-10-21 12:04 | disposition home or self-care (01) ==
LOC: NCHCN 12:03
PROVIDERS: PCP Nurse Practitioner Family; Visit Provider Nurse Practitioner Family
DX: R10.9 Unspecified abdominal pain (principal)
CPT/HCPCS: 80053; 83690; 85027; 81003; 81015; 82150

== ENCOUNTER 2023-10-22 15:59 | Emergency (ER) | payer OTHER, SELFPAY ==
[2023-10-22 16:01] VITALS: BP 154/71; PULSE 83; RESP 18; TEMP 36.9; O2SAT 99
--- NOTE | 2023-10-22 16:07 | W.ED.GENAD ---
Discharge Plan Disposition Patient Disposition: Home Condition: Stable Discharge Details Clinical Impression: Chronic constipation Primary Care Provider: Ginger Martinez ED Provider: Jayy De Jesus Home Meds and New Rx's Prescriptions: Continued omeprazole 20 mg tablet,delayed release (DR/EC) 20 mg PO DAILY PRN bupropion HCl [Wellbutrin SR] 150 mg tablet sustained-release 12 hr 150 mg PO DAILY hydroxyzine HCl 25 mg tablet 25 mg PO BID PRN testosterone cypionate 100 mg/mL Oil 50 mg IM DIRECTED Rx Instructions: as a single dose propranolol 10 mg Tablet 10 mg PO TID PRN fluoxetine 20 mg Tablet 30 mg PO DAILY metoprolol tartrate 25 mg Tablet 25 mg PO DAILY Zyrtec 10 mg Capsule 10 mg PO DAILY Discharge Instructions Instructions: Laxative, Stool Softeners (By mouth), Ondansetron (By mouth), Magnesium Citrate (By mouth), Polyethylene Glycol 3350/Electrolytes (By mouth), Laxatives, Stimulant (Into the rectum), Docusate (Into the rectum), Constipation (ED), Fleet Enema (ED) Additional Instructions: You were seen in the emergency department for your chronic constipation. There is diffuse stool throughout your colon. We discussed possible manual disimpaction versus an attempt at an aggressive relief of constipation treatment and you opted to trial aggressive at home treatment tonight. So that you can better tolerate oral medications of fluids I have sent you home with 3 tablets of ondansetron, this is a once every 8 hour medicine to help with nausea. I have also provided an Ativan tablet to help relax the muscles of the body- inculding the rectum/sphincter muscle- to better allow passage of a large amount of stool. I am sending you home with a tablet of stool softener to take by mouth as well as a suppository placed in the rectum. Give these medicines ample time to work. I have provided you with 2 different stimulant laxatives to take home, the colon prep laxative is the large jug, this may help clear your constipation but if this is too much liquid to drink please use the magnesium citrate instead. At the same time as starting the oral laxative I think you should perform the Fleet enema at home, try to hold this mixture in your rectum as long as you can. If that fails you can try to attempt to drink more of the colon prep fluid throughout the evening and hopefully will have a bowel movement throughout the night into the morning. Please return should he have no success with this at home treatment for likely manual disimpaction Referrals: Ginger Martinez [Primary Care Provider] - [facility] General Date/Time Provider Initiated Documentation: 10/22/23 16:06. HPI Narrative: 23 year-old biological female, uses He/Him pronouns, presents to ED today by POV/ambulating with a chief complaint of constipation for the past month, MiraLax without relief, poor appetite lately, vomiting once this morning, no bowel movement since last Friday (5 days). Quality described as upper abdominal discomfort, no radiation to rectal pain, hematemesis, coffee-ground emesis, fever, cough, shortness of breath, black/bloody stools. Severity is described as moderate/10. Palliating factors include MiraLax without relief. Provoking factors include nothing specific. Events leading up to the incident/Associated Symptoms: Patient has been attempting almost daily MiraLax with some BMs completely liquid prior to last Friday- has tried Colace and Dulcolax without relief. Lack of appetite is associated with immediate early satiety, used to have severe heartburn with food intake. Patient not anticoagulated. Related Data Home Medications Medication Instructions Recorded Confirmed propranolol 10 mg tablet 10 mg PO TID PRN 04/10/22 10/22/23 testosterone cypionate 100 mg/mL 50 mg IM DIRECTED 04/10/22 10/22/23 intramuscular oil cetirizine 10 mg capsule (Zyrtec) 10 mg PO DAILY 02/07/23 10/22/23 fluoxetine 20 mg tablet 30 mg PO DAILY 02/07/23 10/22/23 metoprolol tartrate 25 mg tablet 25 mg PO DAILY 02/07/23 10/22/23 bupropion HCl 150 mg tablet,12 hr 150 mg PO DAILY 06/20/23 10/22/23 sustained-release (Wellbutrin SR) hydroxyzine HCl 25 mg tablet 25 mg PO BID PRN 06/20/23 10/22/23 omeprazole 20 mg tablet,delayed 20 mg PO DAILY PRN 08/29/23 10/22/23 release Allergies Allergy/AdvReac Type Severity Reaction Status Date / Time onion Allergy Unknown Hives Verified 10/22/23 16:08 tomato Allergy Unknown Hives Verified 10/22/23 16:08 aloe vera Allergy Hives Unverified 10/22/23 16:08 animal dander Allergy Hives Verified 10/22/23 16:08 D and C red no.40 Allergy Hives Unverified 10/22/23 16:08 gluten Allergy Hives Verified 10/22/23 16:08 Gold Salts Allergy Other (See Verified 10/22/23 16:08 Comment) house dust Allergy Other (See Verified 10/22/23 16:08 Comment) peanuts Allergy Unknown Hives Uncoded 10/22/23 16:08 heat pressure Allergy Other (See Uncoded 10/22/23 16:08 Comment) mold Allergy Other (See Uncoded 10/22/23 16:08 Comment) sweat Allergy Other (See Uncoded 10/22/23 16:08 Comment) General Stated Complaint: Nausea/Vomit/Diar ARSH: 3 Review of Systems All systems reviewed & are unremarkable except as noted in HPI and below Exam Narrative Exam Narrative: GENERAL APPEARANCE: Well-nourished, non-toxic, awake and alert, atraumatic, no acute distress. SKIN: Warm, pink, dry, intact, without rashes/lesions/ulcerations. HEAD: Normocephalic, atraumatic, normal hair distribution for gender/age. EYES: Pupils PERRLA, EOMs intact without nystagmus, normal conjunctiva, no exudates on lids/lashes. ENT: Nares patent, no circumoral cyanosis, no facial swelling NECK: Supple, trachea midline, painless cervical ROM. LUNGS/CHEST: Non-labored respirations, normal A/P diameter, symmetrical expansion, no chest wall deformity HEART (CV/PV): No peripheral edema, no JVD. ABDOMEN: Soft, non-distended, no guarding, epigastric tenderness, RLQ tenderness, suprapubic tenderness, no Rovsing's, no rebound tenderness. MSK: Normal ROM, no swelling/deformity to bilateral UEs or LEs, moving all extremities without weakness, no cyanosis, spine midline without tenderness, normal curvature. NEURO: Mental Status AAOx4 - alert to person, place, time, events No facial droop, no forehead involvement. Motor: No focal weakness - strength 5/5 in bilateral UEs and LEs, proximal and distal, symmetric. Sensory: sensation intact to light touch globally. Gait normal: patient ambulated without ataxia into ED room. PSYCH: euthymic, cooperative, pleasant, appropriate speech Course Vital Signs Vital signs: Vital Signs Temperature 36.9 C 10/22/23 16:01 Pulse 83 10/22/23 16:01 Respiratory Rate 18 10/22/23 16:01 Blood Pressure 154/71 H 10/22/23 16:01 Pulse Oximetry 99 10/22/23 16:01 Temperature 36.9 C 10/22/23 16:01 Pulse 83 10/22/23 16:01 Respiratory Rate 18 10/22/23 16:01 Respiratory Effort Normal, Non-Labored 10/22/23 16:06 Blood Pressure 154/71 H 10/22/23 16:01 Blood Pressure Position Sitting 10/22/23 16:01 Pulse Oximetry 99 10/22/23 16:01 Oxygen Delivery Method Room Air 10/22/23 16:01 Oxygen Flow Rate 0 10/22/23 16:01 Pain Level 3 10/22/23 16:01 Medical Decision Making This dictation utilizes [id number] dictation software and may contain unedited grammatical errors. 23 y/o biological female, transgender to M, presents to ED today with a chief complaint of constipation for 1 month, last BM 5 days ago, one episode vomiting this morning, poor appetite and upper abdominal cramping. Patient has history of severe GERD, just prescribed omeprazole yesterday, has not started yet. Feelings of early satiety. Having abdominal discomfort, vomiting this morning with PO intake. During the month-long onset, has tried Colace/Dulcolax/MiraLax many times. Patients' medical history: anxiety, hyperlipidemia, food allergies. Family and social history: noncontributory. Pertinent exam findings / vital signs include RLQ & epigastric tenderness without Rovsing's, benign cardiopulmonary status, neuro intact. Differential / pathologies of concern include PUD/GERD, pancreatitis, biliary colic, SBO, appendicitis, IBD, IBS. Diagnostic studies of: -CBC, CMP, Lipase, Lactate, CRP/ESR, Magnesium, UA, CT ABD/Pelvis w Contrast. -CBC shows hemoconcentration. -CMP shows no MONCHO, gap stable. -Lactate WNL -CRP/ESR WNL. -Magnesium WNL. -UA shows - patient did not provide sample. CT shows moderate amount of stool throughout. Interventions of: -2L IVF NS, 1g IV APAP, 15mg IV Ketorlac, 4mg IV Zofran, 40mg IV Protonix. -Discussed aggressive at-home treatment for constipation relief - provided to-go meds for a trial at home- plan for PO & DC stool softeners, 1mg tab of ativan for muscle relaxation, ondansetron to-go to better tolerate fluid intake, fleet enema to-go counseled to hold it in as long as possible- and then based on ability to intake fluid take magnesium citrate or GoLytely PO until relief. Findings not consistent with abscess, appendicitis, pancreatitis, biliary colic, significant electrolyte abnormality or severe dehydration, SBO. Disposition of Chronic Constipation. Patient verbalized understanding of the plan and return to ED criteria and engaged in shared decision making. Medical Records Medical records reviewed: Yes I reviewed the patient's medical records. Imaging Data Radiologic Study: Attestation: I personally reviewed and interpreted this imaging study as follows: Imaging: CT Scan Radiologist's impression: EXAM: CT ABDOMEN PELVIS W a CLINICAL HISTORY: constipation, vomiting w PO intake. TECHNIQUE: Imaging Protocol: Axial computed tomography images with coronal and sagittal reformatted images were created and reviewed CONTRAST MATERIAL: Intravenous: Omnipaque-350 100cc Oral: None COMPARISON: CT CT CHEST PE CTA from 02/07/2023 FINDINGS: VISUALIZED LUNG BASES: No nodules nor pleural effusions evident. ABDOMEN: There is no ascites. LIVER: There are no focal hepatic lesions evident. No dilated intrahepatic ducts. GALLBLADDER/BILIARY: No obvious gallbladder pathology. CBD is not dilated. PANCREAS: No evidence of pancreatic mass nor dilatation of the pancreatic duct. SPLEEN: Spleen is not enlarged. No obvious intrasplenic lesions. Splenic and portal veins are patent. ADRENALS: There are no significant adrenal masses. KIDNEYS:No cysts evident. No solid renal masses. No calculi nor hydronephrosis.. ABDOMINAL AORTA: Abdominal aorta is not enlarged. LYMPH NODES:There is no retroperitoneal nor paraaortic adenopathy. ABDOMINAL WALL: No evidence of significant anterior abdominal wall nor inguinal hernia. GI: There is abundant fecal material noted throughout the colon. Also in the rectosigmoid. No significant diverticular disease. PELVIS: GI: No evidence of appendicitis.No evidence of sigmoid diverticulitis. LYMPH NODES: There is no intrapelvic nor inguinal adenopathy. REPRODUCTIVE: Uterus not identified. No abnormal adnexal masses. URINARY BLADDER: No calculi nor obvious masses evident OSSEOUS: No fractures and no significant osseous lesions. IMPRESSION: 1. No significant acute findings in the abdomen pelvis. 2. Uterus is not identified. 3. Abundant fecal material throughout the colon. Correlation with constipation recommended. Lab Data Lab results reviewed: Yes I reviewed the patient's lab results. Lab results narrative: Labs resulted yesterday 10/21/23 show normal CBC, benign CMP, negative Lipase, UA without UTI. Will trend with repeat labs. Labs: Laboratory Tests Range/Units 10/22/23 16:35 WBC (4.4-10.8) 10^3/uL 6.69 RBC (3.93-5.22) 10^6/uL 5.67 H Hgb (11.2-15.7) g/dL 17.2 H Hct (36.0-46.0) % 50.2 H MCV (80-95) fL 89 MCH (27.0-33.0) pg 30.3 MCHC (32.0-36.0) % 34.3 RDW (11.7-14.6) % 11.1 L Plt Count (130-400) 10^3/uL 357 MPV (8.0-11.0) fL 9.5 Immature Gran % 0.1 Neutrophils % 65.1 Lymphocytes % 26.3 Monocytes % 7.2 Eosinophils % 0.7 Basophils % 0.6 Nucleated RBC % (0.0-0.3) % 0.0 Absolute Neutrophils (1.2-6.7) 10^3/uL 4.35 Absolute Lymphocytes (1.2-3.4) 10^3/uL 1.76 Absolute Monocytes (0.1-0.8) 10^3/uL 0.48 Absolute Eosinophils (0.0-0.7) 10^3/uL 0.05 Absolute Basophils (0.0-0.2) 10^3/uL 0.04 ESR (0-20) mm/hr 2 VBG Lactate (0.6-1.4) mmol/L 1.0 Sodium (136-145) mmol/L 140 Potassium (3.5-5.1) mmol/L 3.5 Chloride (98-107) mmol/L 99 Carbon Dioxide (21.0-32.0) mmol/L 27.4 Anion Gap (3-11) mmol/L 13.6 H BUN (7-18) mg/dL 17 Creatinine (0.55-1.02) mg/dL 1.0 Est GFR (CKD-EPI 2020) (mL/min/1.73m2) 82.20 Glucose (74-106) mg/dL 71 L Calcium (8.5-10.1) mg/dL 9.5 Magnesium (1.8-2.4) mg/dL 2.1 Total Bilirubin (0.2-1.0) mg/dL 0.6 AST (15-37) U/L 18 ALT (14-59) U/L 26 Alkaline Phosphatase (46-116) U/L 114 C-Reactive Protein (<or=0.5) mg/dL < 0.50 Total Protein (6.4-8.2) g/dL 8.6 H Albumin (3.4-5.0) g/dL 5.0 Lipase (16-77) U/L 46 Quality:SDOH Health Related Social Needs: No Data to Display PFSH All Active Problems (Updated 10/22/23 @ 17:56 by TACHO Baron) Chronic constipation (Acute) Food allergy (Acute) Adverse food reaction (Acute) Medical History (Updated 10/22/23 @ 17:56 by TACHO Baron) Anxiety Menstrual disorder Headache ADHD Seasonal allergies Gender identity disorder, unspecified Other abnormal auditory perceptions, bilateral Hx of head injury Sensorineural hearing loss (SNHL) of both ears Hyperlipidemia Hormone replacement therapy Transgender Intermenstrual bleeding Social phobia History of COVID-19 Flexural eczema Multiple joint pain Syncope and collapse Lymphadenopathy, axillary Skin lesions Near syncope Hair loss Urinary frequency Chronic diarrhea Rash and other nonspecific skin eruption Eczema Medication monitoring encounter History of gluten intolerance Surgical History (Updated 06/20/23 @ 14:50 by Shabana Stewart) H/O: hysterectomy Social History Smoking/Tobacco Use Status: Never Smoking risk assessment performed?: Yes Alcohol Intake: never Drug use: Never Substance use type: does not use Housing: apartment Do you feel safe at home: Yes Do you feel safe in your relationship?: Yes
--- NOTE | 2023-10-22 16:15 | DI.CT_ITS ---
Exam(s) CT ABDOMEN PELVIS W EXAM: CT ABDOMEN PELVIS W a CLINICAL HISTORY: constipation, vomiting w PO intake. TECHNIQUE: Imaging Protocol: Axial computed tomography images with coronal and sagittal reformatted images were created and reviewed CONTRAST MATERIAL: Intravenous: Omnipaque-350 100cc Oral: None COMPARISON: CT CT CHEST PE CTA from 02/07/2023 FINDINGS: VISUALIZED LUNG BASES: No nodules nor pleural effusions evident. ABDOMEN: There is no ascites. LIVER: There are no focal hepatic lesions evident. No dilated intrahepatic ducts. GALLBLADDER/BILIARY: No obvious gallbladder pathology. CBD is not dilated. PANCREAS: No evidence of pancreatic mass nor dilatation of the pancreatic duct. SPLEEN: Spleen is not enlarged. No obvious intrasplenic lesions. Splenic and portal veins are paten t. ADRENALS: There are no significant adrenal masses. KIDNEYS:No cysts evident. No solid renal masses. No calculi nor hydronephrosis.. ABDOMINAL AORTA: Abdominal aorta is not enlarged. LYMPH NODES:There is no retroperitoneal nor paraaortic adenopathy. ABDOMINAL WALL: No evidence of significant anterior abdominal wall nor inguinal hernia. GI: There is abundant fecal material noted throughout the colon. Also in the rectosigmoid. No signi ficant diverticular disease. PELVIS: GI: No evidence of appendicitis.No evidence of sigmoid diverticulitis. LYMPH NODES: There is no intrapelvic nor inguinal adenopathy. REPRODUCTIVE: Uterus not identified. No abnormal adnexal masses. URINARY BLADDER: No calculi nor obvious masses evident OSSEOUS: No fractures and no significant osseous lesions. IMPRESSION: 1. No significant acute findings in the abdomen pelvis. 2. Uterus is not identified. 3. Abundant fecal material throughout the colon. Correlation with constipation recommended. RADIATION DOSE DELIVERED: Total DLP DATA REPOSITORY: All CT scans at this facility are submitted to the National Radiology Data Registry (NRDR) Dose Index Registry (DIR) with the [employer] (ACR). RADIATION OPTIMIZATION: All CT scans at this facility use at least one of these dose optimization te chniques: automated exposure control; mA and/or kV adjustment per patient size (includes targeted exa ms where dose is matched to clinical indication); or iterative reconstruction.
[2023-10-22 16:46] LABS: Abs Immature Grans 0.01 10^3/uL (0.0-0.06); Absolute Basophil Count 0.04 10^3/uL (0.0-0.2); Absolute Eosinophil Count 0.05 10^3/uL (0.0-0.7); Absolute Lymphocyte Count 1.76 10^3/uL (1.2-3.4); Absolute Monocyte Count 0.48 10^3/uL (0.1-0.8); Absolute Neutrophil Count 4.35 10^3/uL (1.2-6.7); Basophils % 0.6; Eosinophils % 0.7; HCT 50.2 % (36.0-46.0); HGB 17.2 g/dL (11.2-15.7); Immature Grans % 0.1; Lymphocytes % 26.3; MCH 30.3 pg (27.0-33.0); MCHC 34.3 % (32.0-36.0); MCV 89 fL (80-95); MPV 9.5 fL (8.0-11.0); Monocytes % 7.2; Neutrophils % 65.1; Platelet Count 357 10^3/uL (130-400); RBC 5.67 10^6/uL (3.93-5.22); RDW 11.1 % (11.7-14.6); RDW-SD 35.8 fL; WBC 6.69 10^3/uL (4.4-10.8)
[2023-10-22 16:48] LABS: ESR 2 mm/hr (0-20)
[2023-10-22] MEDS: Ketorolac 15 MG/ML VIAL IVP (16:56)
[2023-10-22] MEDS: Ondansetron 4 MG/2 ML VIAL IVP (16:56)
[2023-10-22] MEDS: Pantoprazole 40 MG VIAL IVP (16:57)
[2023-10-22 17:01] LABS: ALT 26 U/L (14-59); AST 18 U/L (15-37); Alkaline Phosphatase 114 U/L (46-116); Anion Gap 13.6 mmol/L (3-11); BUN 17 mg/dL (7-18); Bilirubin, Total 0.6 mg/dL (0.2-1.0); C-Reactive Protein < 0.50 mg/dL (<or=0.5); CO2 27.4 mmol/L (21.0-32.0); Calcium 9.5 mg/dL (8.5-10.1); Chloride 99 mmol/L (98-107); Glucose 71 mg/dL (74-106); Lipase 46 U/L (16-77); Magnesium 2.1 mg/dL (1.8-2.4); Potassium 3.5 mmol/L (3.5-5.1); Sodium 140 mmol/L (136-145); Total Protein 8.6 g/dL (6.4-8.2)
[2023-10-22] MEDS: Omnipaque 350 MG/ML 100 ML BTL IJ (17:01)
[2023-10-22] MEDS: ACETAMINOPHEN 1,000 MG/100 ML BTL 400 MG IVPB (18:25)
[2023-10-22] MEDS: Normal Saline 1,000 ML 1000 ML IV ×2 (18:25→18:26)
[2023-10-22] MEDS: LORazepam 1 MG TAB PO (19:07)
[2023-10-22] MEDS: Bisacodyl 5 MG TABEC PO (19:07)
[2023-10-22] MEDS: Bisacodyl 10 MG SUPP PR (19:07)
[2023-10-22] MEDS: Magnesium Citrate 300 ML BTL 150 ML PO (19:08)
[2023-10-22 19:57] VITALS: BP 107/64; PULSE 64; TEMP 36.2; O2SAT 100
[2023-10-22] MEDS: Mineral Oil-Enema 133 ML BTL PR (20:05)
--- NOTE | 2023-10-22 20:09 | NUR.NOTE ---
Nursing Note:pt educated on take home meds and treatments for constipation. pt did not want to take the go-lightly gallon drink, stating he would not be able to tolerate it and had used it in the past with no result. IV removed and pt dc home
== END 2023-10-22 20:07 | disposition home or self-care (01) ==
PROVIDERS: Emergency Provider Physician Assistant; PCP Nurse Practitioner Family
DX: K59.00 Constipation, unspecified (principal); R11.2 Nausea with vomiting, unspecified
CPT/HCPCS: 80053; 83690; 85652; 96361; 96374; 96375; 99285; 74177; 83605; 83735; 85025; 86140; 99284; J0131; J1885; J2405; J2470; J3490

== ENCOUNTER 2023-11-10 19:42 | Emergency (ER) | payer OTHER, SELFPAY ==
[2023-11-10 19:48] VITALS: BP 122/78; PULSE 72; RESP 14; TEMP 36.8; O2SAT 99
--- NOTE | 2023-11-10 20:05 | W.ED.GENAD ---
Discharge Plan Disposition Patient Disposition: Home Condition: Improving Discharge Details Clinical Impression: Hypokalemia due to excessive gastrointestinal loss of potassium, Vomiting Primary Care Provider: Ginger Martinez ED Provider: Tamiko Stephen Home Meds and New Rx's Prescriptions: New ondansetron 4 mg tablet,disintegrating 4 mg PO Q8H PRNQty: 7 0RF No Action omeprazole 20 mg tablet,delayed release (DR/EC) 20 mg PO DAILY PRN bupropion HCl [Wellbutrin SR] 150 mg tablet sustained-release 12 hr 150 mg PO DAILY hydroxyzine HCl 25 mg tablet 25 mg PO BID PRN testosterone cypionate 100 mg/mL Oil 50 mg IM DIRECTED Rx Instructions: as a single dose propranolol 10 mg Tablet 10 mg PO TID PRN fluoxetine 20 mg Tablet 30 mg PO DAILY metoprolol tartrate 25 mg Tablet 25 mg PO DAILY Zyrtec 10 mg Capsule 10 mg PO DAILY Discharge Instructions Additional Instructions: Please call your primary care provider's office first thing in the morning to schedule follow-up appointment. I encourage you to stay well-hydrated. Start with clear liquids, adding in broths, chicken noodle soup, toast. I encourage you to eat bananas because you lost some potassium with your vomiting. Gatorlyte may also be a good option, as it contains plenty of electrolytes You may use the Zofran as needed for vomiting. I recommend that you cut back on Miralax use. Return to emergency care for develop severe abdominal pain, inability to hold down any fluids, blood in stool or vomit, episodes of passing out, or if you are very concerned and need to be rechecked again immediately Referrals: Ginger Martinez [Primary Care Provider] - HPI General Date/Time Provider Initiated Documentation: 11/10/23 19:49. HPI Narrative: Td is a 23-year-old trans male who presents to the emergency department today for evaluation of intractable vomiting. He reports that he was diagnosed with constipation on October 31, completed a bowel cleanout successfully, has been having small amounts of diarrhea daily since completing course. He reports that he has had nausea and vomiting for the past 5 days, initially vomiting all food intake but it has since progressed to all fluids as well. He does report decreased p.o. fluid intake with concomitant decreased urine output. Also reports chills and cramping upper abdominal discomfort. Denies fever, congestion, headaches, sore throat, cough, chest pain, shortness of breath, blood in stool or emesis. Does have a history of abdominal surgery, hysterectomy. Is currently being evaluated by gastroenterology for digestive issues. No history of intractable vomiting previously. Does have POTS, denies other PMH. Related Data Home Medications Medication Instructions Recorded Confirmed propranolol 10 mg tablet 10 mg PO TID PRN 04/10/22 10/22/23 testosterone cypionate 100 mg/mL 50 mg IM DIRECTED 04/10/22 10/22/23 intramuscular oil cetirizine 10 mg capsule (Zyrtec) 10 mg PO DAILY 02/07/23 10/22/23 fluoxetine 20 mg tablet 30 mg PO DAILY 02/07/23 10/22/23 metoprolol tartrate 25 mg tablet 25 mg PO DAILY 02/07/23 10/22/23 bupropion HCl 150 mg tablet,12 hr 150 mg PO DAILY 06/20/23 10/22/23 sustained-release (Wellbutrin SR) hydroxyzine HCl 25 mg tablet 25 mg PO BID PRN 06/20/23 10/22/23 omeprazole 20 mg tablet,delayed 20 mg PO DAILY PRN 08/29/23 10/22/23 release ondansetron 4 mg disintegrating 4 mg PO Q8H PRN #7 tabs 11/10/23 tablet Previous Rx's Medication Instructions Recorded ondansetron 4 mg disintegrating 4 mg PO Q8H PRN #7 tabs 11/10/23 tablet Allergies Allergy/AdvReac Type Severity Reaction Status Date / Time onion Allergy Unknown Hives Verified 11/10/23 20:42 tomato Allergy Unknown Hives Verified 11/10/23 20:42 aloe vera Allergy Hives Unverified 11/10/23 20:42 animal dander Allergy Hives Verified 11/10/23 20:42 D and C red no.40 Allergy Hives Unverified 11/10/23 20:42 gluten Allergy Hives Verified 11/10/23 20:42 Gold Salts Allergy Other (See Verified 11/10/23 20:42 Comment) house dust Allergy Other (See Verified 11/10/23 20:42 Comment) peanuts Allergy Unknown Hives Uncoded 11/10/23 20:42 heat pressure Allergy Other (See Uncoded 11/10/23 20:42 Comment) mold Allergy Other (See Uncoded 11/10/23 20:42 Comment) sweat Allergy Other (See Uncoded 11/10/23 20:42 Comment) General Stated Complaint: Nausea/Vomit/Diar ARSH: 3 Review of Systems Narrative: see HPI Exam Const General: cooperative, healthy appearing and well developed Nutritional Appearance: average body habitus HENMT Head: normal to inspection Mouth: moist mucous membranes Resp Effort & Inspection: normal respiratory effort and able to speak in complete sentences Auscultation: clear to auscultation bilaterally Cardio Rate: regular rate Rhythm: regular rhythm GI Inspection: normal to inspection, no abdominal wall ecchymosis and non-distended Palpation: soft, not firm and tender in the RLQ Auscultation: hypoactive bowel sounds Course Vital Signs Vital signs: Vital Signs Temperature 36.8 C 11/10/23 19:48 Pulse 72 11/10/23 19:48 Respiratory Rate 14 11/10/23 19:48 Blood Pressure 122/78 11/10/23 19:48 Pulse Oximetry 99 11/10/23 19:48 Temperature 36.8 C 11/10/23 19:48 Temperature Source Temporal Artery Scan 11/10/23 19:48 Pulse 72 11/10/23 19:48 Respiratory Rate 14 11/10/23 19:48 Respiratory Effort Normal, Non-Labored 11/10/23 19:55 Blood Pressure 122/78 11/10/23 19:48 Blood Pressure Position Sitting 11/10/23 19:48 Pulse Oximetry 99 11/10/23 19:48 Oxygen Delivery Method Room Air 11/10/23 19:48 Oxygen Flow Rate 0 11/10/23 19:48 Pain Level 4 11/10/23 19:48 Medical Decision Making Medical Records Medical records narrative: Td is a 23-year-old trans male who presents to the emergency department today for evaluation of intractable vomiting. He reports that he was diagnosed with constipation on October 31, completed a bowel cleanout successfully, has been having small amounts of diarrhea daily since completing course. He reports that he has had nausea and vomiting for the past 5 days, initially vomiting all food intake but it has since progressed to all fluids as well. He does report decreased p.o. fluid intake with concomitant decreased urine output. Also reports chills and cramping upper abdominal discomfort. Denies fever, congestion, headaches, sore throat, cough, chest pain, shortness of breath, blood in stool or emesis. Does have a history of abdominal surgery, hysterectomy. Is currently being evaluated by gastroenterology for digestive issues. No history of intractable vomiting previously. Does have POTS, denies other PMH. Physical exam remarkable for RLQ tenderness with palpation. Hypoactive bowel sounds noted in all quadrants. Abdomen is soft, nondistended, no rigidity or guarding. Moist mucous membranes. Easy work of breathing, lung sounds clear bilaterally. Normal heart sounds. DDx includes but is not limited to appendicitis, small bowel obstruction, dehydration, electrolyte imbalance I independently interpreted the following tests: CBC reassuring. CMP notable for mild hypokalemia, creatinine 1.3. EKG performed to rule out QT prolongation, reassuring, normal sinus rhythm rate 59. No QT prolongation. CT abdomen/pelvis reassuring, no acute findings other than some nondilated gas and fluid-filled distal small bowel, consistent with known diarrhea. While in the emergency dept Td received IV fluids and zofran for nausea. He did continue to report persistent nausea, failed p.o. challenge. After discussing with patient, he reports he has had persistent nausea for the past couple of months. Haldol in IV fluids given with good improvement in symptoms. Unclear etiology of vomiting, likely gastritis. Overall workup today reassuring. Recommend follow-up with PCP and gastroenterology for further testing. Will provide prescription for Zofran. Reviewed discharge instructions with patient, including symptomatic management and red flags indicate need for return to emergency care. He is agreeable with plan of care. 2335: IV meds finishing, pt to PO challenge. Handoff report given to Dr Mart. Quality:[facility] Health Related Social Needs: No Data to Display PFSH All Active Problems (Updated 11/10/23 @ 23:30 by Tamiko Cleveland) Vomiting (Acute) Hypokalemia due to excessive gastrointestinal loss of potassium (Acute) Chronic constipation (Acute) Food allergy (Acute) Adverse food reaction (Acute) Medical History (Updated 11/10/23 @ 23:30 by Tamiko Cleveland) Anxiety Menstrual disorder Headache ADHD Seasonal allergies Gender identity disorder, unspecified Other abnormal auditory perceptions, bilateral Hx of head injury Sensorineural hearing loss (SNHL) of both ears Hyperlipidemia Hormone replacement therapy Transgender Intermenstrual bleeding Social phobia History of COVID-19 Flexural eczema Multiple joint pain Syncope and collapse Lymphadenopathy, axillary Skin lesions Near syncope Hair loss Urinary frequency Chronic diarrhea Rash and other nonspecific skin eruption Eczema Medication monitoring encounter History of gluten intolerance Surgical History (Updated 06/20/23 @ 14:50 by Shabana Stewart) H/O: hysterectomy Social History Smoking/Tobacco Use Status: Never Smoking risk assessment performed?: Yes Alcohol Intake: never Drug use: Never Substance use type: does not use Housing: apartment Do you feel safe at home: Yes Do you feel safe in your relationship?: Yes
[2023-11-10 20:30] LABS: HCT 47.9 % (36.0-46.0); HGB 16.4 g/dL (11.2-15.7); MCH 30.7 pg (27.0-33.0); MCHC 34.2 % (32.0-36.0); MCV 90 fL (80-95); MPV 9.5 fL (8.0-11.0); Platelet Count 330 10^3/uL (130-400); RBC 5.34 10^6/uL (3.93-5.22); RDW 11.8 % (11.7-14.6); RDW-SD 38.7 fL; WBC 6.54 10^3/uL (4.4-10.8)
[2023-11-10] MEDS: Normal Saline 1,000 ML 1000 ML IV ×2 (20:30→23:09)
[2023-11-10] MEDS: Ondansetron 4 MG/2 ML VIAL IVP (20:30)
[2023-11-10] MEDS: Omnipaque 350 MG/ML 100 ML BTL IJ (20:33)
[2023-11-10] MEDS: Normal Saline - Diluent 50 ML VIAL IJ (20:40)
[2023-11-10 20:45] LABS: ALT 21 U/L (14-59); AST 17 U/L (15-37); Albumin 4.8 g/dL (3.4-5.0); Alkaline Phosphatase 102 U/L (46-116); Anion Gap 11.1 mmol/L (3-11); BUN 8 mg/dL (7-18); CO2 27.9 mmol/L (21.0-32.0); CREATININE 1.3 mg/dL (0.55-1.02); Calcium 9.3 mg/dL (8.5-10.1); Chloride 102 mmol/L (98-107); Glucose 86 mg/dL (74-106); Lipase 43 U/L (16-77); Potassium 3.3 mmol/L (3.5-5.1); Sodium 141 mmol/L (136-145); Total Protein 8.1 g/dL (6.4-8.2)
--- NOTE | 2023-11-10 20:46 | DI.CT_ITS ---
Exam(s) CT ABDOMEN PELVIS W EXAM: CT ABDOMEN PELVIS W CLINICAL HISTORY: abd pain, unable to tolerate PO, RLQ tenderness. TECHNIQUE: Imaging Protocol: Axial computed tomography images with coronal and sagittal reformatted images were created and reviewed CONTRAST MATERIAL: Intravenous: Omnipaque 350 Contrast volume:100 ml Oral: no COMPARISON: CT CT ABDOMEN PELVIS W from 10/22/2023 FINDINGS: ABDOMEN and PELVIS: Lung Bases: No acute findings. Liver: Normal density. No measurable mass. Gallbladder and biliary tract: No radiodense calculus or biliary dilation. Pancreas: Normal density. No abnormal calcifications or inflammatory process. No evidence of mass. Spleen: Normal. Kidneys: Normal size, contour and axis. No radiodense stones. No obstructive uropathy. No suspicious masses seen. Adrenal glands: No masses seen. Vasculature: Abdominal aorta non-dilated. Soft tissues: Unremarkable. Bladder: No gross wall thickening. No calculi.No focal mass. Bowel: Fluid in colon which could indicate diarrheal illness. No obstruction. No bowel wall thicke lydia. Appendix normal. Peritoneal cavity: No ascites. No focal collection or mesenteric inflammatory response. Bones: Mild scoliosis. Reproductive organs: Uterus again not identified. Lymph nodes: Unremarkable. IMPRESSION:: Fluid in the colon which could indicate diarrheal illness. No wall thickening. Append ix normal. RADIATION DOSE DELIVERED: Total DLP DATA REPOSITORY: All CT scans at this facility are submitted to the National Radiology Data Registry (NRDR) Dose Index Registry (DIR) with the [employer] ([employer]). RADIATION OPTIMIZATION: All CT scans at this facility use at least one of these dose optimization te chniques: automated exposure control; mA and/or kV adjustment per patient size (includes targeted exa ms where dose is matched to clinical indication); or iterative reconstruction.
[2023-11-10 20:55] VITALS: BP 125/72; PULSE 80; RESP 14; O2SAT 97
--- NOTE | 2023-11-10 21:41 | DI.VRAD_ITS ---
PROCEDURE INFORMATION: Exam: CT Abdomen And Pelvis With Contrast Exam date and time: 11/10/2023 8:42 PM Age: 23 years old Clinical indication: Other: Abd pain, unable to tolerate po, rlq tenderness TECHNIQUE: Imaging protocol: Computed tomography of the abdomen and pelvis with contrast. Contrast material: OMNIPAQUE 350; Contrast volume: 100 ml; Contrast route: INTRAVENOUS (IV); COMPARISON: CT ABDOMEN PELVIS W 10/22/2023 4:57 PM FINDINGS: Liver: Normal. Gallbladder and bile ducts: Normal. Pancreas: Normal. Spleen: Normal. Adrenal glands: Normal. No mass. Kidneys and ureters: Normal. Stomach and bowel: Few loops of nondilated, gas and fluid-filled distal small bowel and proximal colon, possibly enteritis/diarrhea. Appendix: Appendix normal. Intraperitoneal space: Unremarkable. No free air. No significant fluid collection. Vasculature: Unremarkable. No abdominal aortic aneurysm. Lymph nodes: Unremarkable. No enlarged lymph nodes. Urinary bladder: Unremarkable as visualized. Reproductive: Unremarkable as visualized. Bones/joints: Mild levoscoliosis of the lumbar spine. Soft tissues: Normal. IMPRESSION: Few loops of nondilated, gas and fluid-filled distal small bowel and proximal colon, possibly enteritis/diarrhea. Dictated and Authenticated by: Missael Arnold MD. Ordering:SUZY Morrison MD
[2023-11-10] MEDS: Ondansetron O.D.T. 4 MG TABEF (22:24)
[2023-11-10] MEDS: Famotidine 20 MG/2 ML VIAL IVP (22:24)
[2023-11-10] MEDS: Normal Saline 50 ML 200 ML (22:29)
[2023-11-10 22:31] VITALS: BP 126/70; PULSE 76; RESP 14; O2SAT 98
--- NOTE | 2023-11-10 22:45 | RT.EKG_ITS ---
APPROVED REPORT Exam: Resting ECG Reason for Exam: r/o QT prolongation Patient Location: E HR:59 bpm ECG Measurements Heart Rate 59 AXIS PA 145 P 46 QRSd 89 QRS 65 QT 440 T 33 QTc 436 Conclusion Sinus bradycardia...rate< 60. There are nonspecific repolarization anomalies in scattered leads, mos t notable III and aVL. There is no obvious pattern injury ischemia on this tracing. intervals are o therwise normal.
[2023-11-10] MEDS: Haloperidol 5 MG/ML VIAL 2 MG IM/IV (23:09)
[2023-11-11 00:02] VITALS: BP 124/72; PULSE 72; RESP 14; O2SAT 99
== END 2023-11-11 00:02 | disposition home or self-care (01) ==
PROVIDERS: Nurse Practitioner Family; Emergency Provider Emergency Medicine Emergency Medical Services; PCP Nurse Practitioner Family
DX: E87.6 Hypokalemia (principal); R11.2 Nausea with vomiting, unspecified; R00.1 Bradycardia, unspecified
CPT/HCPCS: 36415; 80053; 83690; 85027; 93005; 96361; 96374; 96375; 99285; 74177; 93010; 99284; J1630; J2405; J3490

== ENCOUNTER 2023-11-26 09:42 | Emergency (ER) | payer OTHER, SELFPAY ==
[2023-11-26 09:47] VITALS: BP 122/72; PULSE 73; RESP 18; TEMP 36.4; O2SAT 99
--- NOTE | 2023-11-26 10:06 | W.ED.GENAD ---
Discharge Plan Disposition Patient Disposition: Home Condition: Stable Discharge Details Clinical Impression: Nausea and vomiting Primary Care Provider: Ginger Martinez ED Provider: Jayy De Jesus Home Meds and New Rx's Prescriptions: New ondansetron 4 mg tablet,disintegrating 4 mg PO Q8H PRN (Reason: nausea and vomiting) Qty: 30 0RF Continued bupropion HCl [Wellbutrin SR] 150 mg tablet sustained-release 12 hr 150 mg PO DAILY hydroxyzine HCl 25 mg tablet 25 mg PO BID PRN testosterone cypionate 100 mg/mL Oil 50 mg IM DIRECTED Rx Instructions: as a single dose propranolol 10 mg Tablet 10 mg PO TID PRN fluoxetine 20 mg Tablet 30 mg PO DAILY metoprolol tartrate 25 mg Tablet 25 mg PO DAILY Zyrtec 10 mg Capsule 10 mg PO DAILY ondansetron 4 mg tablet,disintegrating 4 mg PO Q8H PRNQty: 7 0RF pantoprazole 20 mg tablet,delayed release (DR/EC) 20 mg PO DAILY PRN Patient Comments: TAKE ONE TABLET BY MOUTH EVERY DAY Discharge Instructions Instructions: Acute Nausea and Vomiting (ED) Additional Instructions: You were seen in the emergency department for your acute nausea and vomiting. I did speak with [facility] and they do recommend supportive care we did provide fluids of D5 and lactated Ringer's which is a source calories and potassium. Your electrolytes showed no abnormality on labs, your liver enzymes are normal. Lipase was elevated just above a high normal. I discussed optional treatment with Reglan with GI they recommended against it, have sent a prescription for Zofran, use this every 8 hours, attempt slow hydration and nourishment about 20 to 30 minutes later. Do not try to overwhelm your stomach with you more than a couple bites of food at a time. We did discuss possibly approaching the hospitalist for admission with IV fluids you preferred to trial at home treatment which is reasonable with your reassuring labs though if you continue to experience intractable nausea and vomiting you may need to be admitted to the hospital. Please return for any emergent concerns. [place] [facility] [place] to see if they can expedite your upper endoscopy and colonoscopy. Referrals: Ginger Martinez [Primary Care Provider] - Discharge Data Discharge Date/Time-TO BE ENTERED AT DEPARTURE: 11/26/23 13:53 HPI General Date/Time Provider Initiated Documentation: 11/26/23 09:45. HPI Narrative: 23 year-old trans male presents to ED today by POV/ambulating with his partner with a chief complaint of acute on chronic abdominal problems, vomiting of undigested food, nausea/vomiting, intermittent cramping abdominal pain, constipation with onset over months. Quality described as vomiting with any PO intake, abdominal cramping, unintentional weight loss, no radiation to fever, severe focal abdominal pain, dark urine, hematuria, black/bloody stools, syncope, bilious vomiting. Severity is described as severe. Palliating factors include has tried laxatives, antiemetics and is [place] [facility] [place]oscopy scheduled in 3.5 weeks. Provoking factors include nothing specific. Events leading up to the incident/Associated Symptoms: Patient seen recently by this provider with negative CT scan and work-up. Patient not anticoagulated. Related Data Home Medications Medication Instructions Recorded Confirmed propranolol 10 mg tablet 10 mg PO TID PRN 04/10/22 11/26/23 testosterone cypionate 100 mg/mL 50 mg IM DIRECTED 04/10/22 11/26/23 intramuscular oil cetirizine 10 mg capsule (Zyrtec) 10 mg PO DAILY 02/07/23 11/26/23 fluoxetine 20 mg tablet 30 mg PO DAILY 02/07/23 11/26/23 metoprolol tartrate 25 mg tablet 25 mg PO DAILY 02/07/23 11/26/23 bupropion HCl 150 mg tablet,12 hr 150 mg PO DAILY 06/20/23 11/26/23 sustained-release (Wellbutrin SR) hydroxyzine HCl 25 mg tablet 25 mg PO BID PRN 06/20/23 11/26/23 ondansetron 4 mg disintegrating 4 mg PO Q8H PRN #7 tabs 11/10/23 11/26/23 tablet ondansetron 4 mg disintegrating 4 mg PO Q8H PRN nausea and 11/26/23 tablet vomiting #30 tabs pantoprazole 20 mg tablet,delayed 20 mg PO DAILY PRN 11/26/23 11/26/23 release Previous Rx's Medication Instructions Recorded ondansetron 4 mg disintegrating 4 mg PO Q8H PRN #7 tabs 11/10/23 tablet ondansetron 4 mg disintegrating 4 mg PO Q8H PRN nausea and 11/26/23 tablet vomiting #30 tabs Allergies Allergy/AdvReac Type Severity Reaction Status Date / Time onion Allergy Unknown Hives Verified 11/26/23 09:49 tomato Allergy Unknown Hives Verified 11/26/23 09:49 aloe vera Allergy Hives Unverified 11/26/23 09:49 animal dander Allergy Hives Verified 11/26/23 09:49 D and C red no.40 Allergy Hives Unverified 11/26/23 09:49 gluten Allergy Hives Verified 11/26/23 09:49 Gold Salts Allergy Other (See Verified 11/26/23 09:49 Comment) house dust Allergy Other (See Verified 11/26/23 09:49 Comment) peanuts Allergy Unknown Hives Uncoded 11/26/23 09:49 heat pressure Allergy Other (See Uncoded 11/26/23 09:49 Comment) mold Allergy Other (See Uncoded 11/26/23 09:49 Comment) sweat Allergy Other (See Uncoded 11/26/23 09:49 Comment) General Stated Complaint: GenMedical ARSH: 3 Review of Systems All systems reviewed & are unremarkable except as noted in HPI and below Exam Narrative Exam Narrative: GENERAL APPEARANCE: Well-nourished, non-toxic, awake and alert, atraumatic, no acute distress. SKIN: Warm, pink, dry, intact, without rashes/lesions/ulcerations. HEAD: Normocephalic, atraumatic, normal hair distribution for gender/age. EYES: Pupils PERRLA, EOMs intact without nystagmus, normal conjunctiva, no exudates on lids/lashes. ENT: Nares patent, no circumoral cyanosis, no facial swelling NECK: Supple, trachea midline, painless cervical ROM. LUNGS/CHEST: Lungs CTA bilaterally- no rhonchi/rales/wheezes diffusely, non-labored respirations, normal A/P diameter, symmetrical expansion, no chest wall deformity HEART (CV/PV): Regular rate and rhythm without murmur, no peripheral edema, no JVD. ABDOMEN: Soft, non-distended, no guarding, hypoactive bowel sounds, no focal abdominal tenderness, no peritoneal signs. MSK: Normal ROM, no swelling/deformity to bilateral UEs or LEs, moving all extremities without weakness, no cyanosis, spine midline without tenderness, normal curvature. NEURO: Mental Status AAOx4 - alert to person, place, time, events No facial droop, no forehead involvement. Motor: No focal weakness - strength 5/5 in bilateral UEs and LEs, proximal and distal, symmetric. Sensory: sensation intact to light touch globally. Gait normal: patient ambulated without ataxia into ED room. PSYCH: euthymic, cooperative, pleasant, appropriate speech Course Vital Signs Vital signs: Vital Signs Temperature 36.4 C L 11/26/23 09:47 Pulse 73 11/26/23 09:47 Respiratory Rate 18 11/26/23 09:47 Blood Pressure 122/72 11/26/23 09:47 Pulse Oximetry 99 11/26/23 09:47 Temperature 36.4 C L 11/26/23 09:47 Temperature Source Skin 11/26/23 09:47 Pulse 73 11/26/23 09:47 Respiratory Rate 18 11/26/23 09:47 Respiratory Effort Normal, Non-Labored 11/26/23 09:50 Blood Pressure 122/72 11/26/23 09:47 Blood Pressure Position Sitting 11/26/23 09:47 Pulse Oximetry 99 11/26/23 09:47 Oxygen Delivery Method Room Air 11/26/23 09:47 Oxygen Flow Rate 0 11/26/23 09:47 Pain Level 0 11/26/23 09:47 Medical Decision Making This dictation utilizes [id number] dictation software and may contain unedited grammatical errors. 23 y/o F presents to ED today with a chief complaint of acute on chronic abdominal pain, weight loss, vomiting of undigested food, seen [place] [facility]- possibly gastroparesis/delayed gastric emptying- negative CT scan at last visit to [facility]. Patient denies daily marijuana use, has had chronic constipation. Patient has an EGD/colonoscopy in 3.5 weeks. Patients' medical history: Anxiety, hormone replacement therapy, hyperlipidemia, chronic diarrhea, chronic constipation, history of gluten intolerance, hypokalemia. Family and social history: noncontributory. Pertinent exam findings / vital signs include benign abdomen, lungs CTA, stable vitals without signs of severe dehydration. Patient objectively has relatively stable weight going back to 2021 when he is 58.9 kg, by 2023 he was 63.5 kg and now he is back down to 58.8 kg - acute loss of 8-10lbs over months. Differential / pathologies of concern include gastroparesis, cyclical vomiting syndrome, electrolyte abnormality, dehydration. Diagnostic studies of: -CBC, BMP, liver panel, lipase, lactate, UA, TSH, CK. -CBC benign -BMP benign, no MONCHO, no electrolyte abnormalities -Liver panel benign -Lipase mild elevation -Lactate wnl -UA signs of mild dehydration -TSH WNL -CK negative Interventions of: -IV [place], Benadryl, D5LR 1L, Consult [facility]. ED Course/Assessment/Plan: 23-year-old trans male presents with acute on chronic nausea and vomiting with mild abdominal distention, awaiting endoscopy colonoscopy with [facility] which is in 3.5 weeks. They have been seen and treated for mild hypokalemia in the past, perform CT scans at last visit without any acute abnormalities, the differential includes delayed gastric emptying versus biliary dyskinesia without any peritoneal signs. Labs are reassuring without any electrolyte derangements today, LFTs within normal limits, mild increase in lipase likely in the setting of dehydration. I spoke with [facility] to try and have the patient have expedited follow-up, I discussed a possible admission with the patient for intractable nausea and vomiting without emergent concerns at this time. They would prefer to trial Zofran 3 times daily at home with very slow nourishment and hydration per the recommendations of [facility]. I did discuss long-term use of Reglan with [facility] to increase speed of gastric emptying but without definitive diagnosis this is not recommended as well as the patient is on Wellbutrin and fluoxetine which would interact long-term with Reglan, they do recommend Zofran as preferred antiemetic. I did offer the patient to consult with our hospitalist for admission and that we would likely just be doing IV fluids and antiemetics overnight, he opted to watchfully wait at home and use oral antiemetics and try a slow hydration with strict return criteria Findings not consistent with severe dehydration, rhabdomyolysis, kidney failure, MONCHO, liver failure, cholangitis, patient does have mildly elevated lipase possibly in the setting of dehydration. Unlikely perforated viscus or sepsis, no sign of UTI. Disposition of Nausea and Vomiting. Patient verbalized understanding of the plan and return to ED criteria and engaged in shared decision making. Medical Records Medical records reviewed: Yes I reviewed the patient's medical records. Lab Data Lab results reviewed: Yes I reviewed the patient's lab results. Labs: 11/26/23 11:30 Urine - Reflex from Ua Urine Culture - Pending Laboratory Tests Range/Units 11/26/23 11/26/23 11/26/23 10:11 10:36 11:30 WBC (4.4-10.8) 10^3/uL 4.76 RBC (3.93-5.22) 10^6/uL 5.26 H Hgb (11.2-15.7) g/dL 15.7 Hct (36.0-46.0) % 47.0 H MCV (80-95) fL 89 MCH (27.0-33.0) pg 29.8 MCHC (32.0-36.0) % 33.4 RDW (11.7-14.6) % 11.8 Plt Count (130-400) 10^3/uL 341 MPV (8.0-11.0) fL 9.8 Immature Gran % 0.2 Neutrophils % 66.3 Lymphocytes % 24.8 Monocytes % 7.4 Eosinophils % 1.1 Basophils % 0.2 Nucleated RBC % (0.0-0.3) % 0.0 Absolute Neutrophils (1.2-6.7) 10^3/uL 3.16 Absolute Lymphocytes (1.2-3.4) 10^3/uL 1.18 L Absolute Monocytes (0.1-0.8) 10^3/uL 0.35 Absolute Eosinophils (0.0-0.7) 10^3/uL 0.05 Absolute Basophils (0.0-0.2) 10^3/uL 0.01 VBG Lactate (0.6-1.4) mmol/L 0.9 Sodium (136-145) mmol/L 142 Potassium (3.5-5.1) mmol/L 3.8 Chloride (98-107) mmol/L 102 Carbon Dioxide (21.0-32.0) mmol/L 29.1 Anion Gap (3-11) mmol/L 10.9 BUN (7-18) mg/dL 17 Creatinine (0.55-1.02) mg/dL 1.1 H Est GFR (CKD-EPI 2020) (mL/min/1.73m2) 73.31 Glucose (74-106) mg/dL 83 Calcium (8.5-10.1) mg/dL 9.1 Magnesium (1.8-2.4) mg/dL 2.1 Total Bilirubin (0.2-1.0) mg/dL 0.8 Conjugated Bilirubin (0.0-0.2) mg/dL 0.2 AST (15-37) U/L 16 ALT (14-59) U/L 23 Alkaline Phosphatase (46-116) U/L 98 Creatine Kinase Cancelled 82 Total Protein (6.4-8.2) g/dL 8.0 Albumin (3.4-5.0) g/dL 4.5 Amylase Cancelled 51 Lipase (16-77) U/L 98 H TSH (0.36-3.74) uIU/mL 1.14 Urine Color (Yellow) Tere Urine Clarity (Clear) Sl Cloudy Urine pH (5-8) 6.0 Ur Specific [place] (1.005-1.025) >= 1.030 H Urine Protein (Neg-Trace) mg/dL 30 H Urine Ketones (Negative) mg/dL 80 H Urine Blood (Negative) Negative Urine Nitrite (Negative) Negative Urine Bilirubin (Negative) Moderate H Urine Urobilinogen (Up to 0.2) mg/dL 0.2 Ur Leukocyte Esterase (Negative) Trace H Urine RBC (0-2) HPF Negative Urine WBC (0-5) HPF 5-10 Ur Epithelial Cells (Negative) HPF Rare Urine Crystals (Negative) HPF Negative Urine Bacteria (Negative) HPF Few Urine Casts (Negative) LPF 0-2 Hyaline Urine Mucus (Negative) Moderate Ur Culture Indicated? Yes Urine Glucose (Negative) mg/dL 100 H Quality:SDOH Health Related Social Needs: No Data to Display PFSH All Active Problems (Updated 11/26/23 @ 13:43 by TACHO Baron) Nausea and vomiting (Acute) Vomiting (Acute) Hypokalemia due to excessive gastrointestinal loss of potassium (Acute) Food allergy (Acute) Adverse food reaction (Acute) Medical History (Updated 11/26/23 @ 13:43 by TACHO Baron) Anxiety Menstrual disorder Headache ADHD Seasonal allergies Gender identity disorder, unspecified Other abnormal auditory perceptions, bilateral Hx of head injury Sensorineural hearing loss (SNHL) of both ears Hyperlipidemia Hormone replacement therapy Transgender Intermenstrual bleeding Social phobia History of COVID-19 Flexural eczema Multiple joint pain Syncope and collapse Lymphadenopathy, axillary Skin lesions Near syncope Hair loss Urinary frequency Chronic diarrhea Rash and other nonspecific skin eruption Eczema Medication monitoring encounter History of gluten intolerance Surgical History (Updated 06/20/23 @ 14:50 by Shabana Stewart) H/O: hysterectomy Social History Smoking/Tobacco Use Status: Never Smoking risk assessment performed?: Yes Alcohol Intake: never Drug use: Never Substance use type: does not use Housing: apartment Do you feel safe at home: Yes Do you feel safe in your relationship?: Yes
[2023-11-26 10:43] LABS: Lactate 0.9 mmol/L (0.6-1.4)
[2023-11-26 10:45] LABS: Abs Immature Grans 0.01 10^3/uL (0.0-0.06); Absolute Basophil Count 0.01 10^3/uL (0.0-0.2); Absolute Eosinophil Count 0.05 10^3/uL (0.0-0.7); Absolute Lymphocyte Count 1.18 10^3/uL (1.2-3.4); Absolute Monocyte Count 0.35 10^3/uL (0.1-0.8); Absolute Neutrophil Count 3.16 10^3/uL (1.2-6.7); Basophils % 0.2; Eosinophils % 1.1; HGB 15.7 g/dL (11.2-15.7); Immature Grans % 0.2; Lymphocytes % 24.8; MCH 29.8 pg (27.0-33.0); MCHC 33.4 % (32.0-36.0); MCV 89 fL (80-95); MPV 9.8 fL (8.0-11.0); Monocytes % 7.4; Neutrophils % 66.3; Platelet Count 341 10^3/uL (130-400); RBC 5.26 10^6/uL (3.93-5.22); RDW 11.8 % (11.7-14.6); RDW-SD 38.3 fL; WBC 4.76 10^3/uL (4.4-10.8)
[2023-11-26] MEDS: DEXTROSE 5%-LACTATED RINGERS 1,000 ML 150 ML IV (10:50)
[2023-11-26] MEDS: diphenhydrAMINE 50 MG/ML VIAL 25 MG IVP (10:50)
[2023-11-26] MEDS: Metoclopramide 10 MG/2 ML VIAL IVP (10:51)
[2023-11-26 11:08] LABS: ALT 23 U/L (14-59); AST 16 U/L (15-37); Albumin 4.5 g/dL (3.4-5.0); Alkaline Phosphatase 98 U/L (46-116); Amylase 51 U/L (25-115); Anion Gap 10.9 mmol/L (3-11); BUN 17 mg/dL (7-18); Bilirubin, Direct 0.2 mg/dL (0.0-0.2); Bilirubin, Total 0.8 mg/dL (0.2-1.0); CO2 29.1 mmol/L (21.0-32.0); CREATININE 1.1 mg/dL (0.55-1.02); Calcium 9.1 mg/dL (8.5-10.1); Chloride 102 mmol/L (98-107); Creatine Kinase 82 U/L (26-192); Estimated GFR 73.31 (mL/min/1.73m2); Glucose 83 mg/dL (74-106); Lipase 98 U/L (16-77); Magnesium 2.1 mg/dL (1.8-2.4); Potassium 3.8 mmol/L (3.5-5.1); Sodium 142 mmol/L (136-145); TSH (W/Ref FT4) 1.14 uIU/mL (0.36-3.74)
[2023-11-26 11:40] LABS: Bilirubin Moderate (Negative); Blood Negative (Negative); Clarity Sl Cloudy (Clear); Glucose 100 mg/dL (Negative); Ketones 80 mg/dL (Negative); Leukocyte Esterase Trace (Negative); Nitrite Negative (Negative); Specific Gravity >= 1.030 (1.005-1.025); Urobilinogen 0.2 mg/dL (Up to 0.2)
[2023-11-26 11:54] LABS: Bacteria Few HPF (Negative); Casts 0-2 Hyaline LPF (Negative); Crystals Negative HPF (Negative); Epithelial Cells Rare HPF (Negative); Mucus Moderate (Negative); RBC Negative HPF (0-2)
[2023-11-26 11:55] LABS: C & S Indicated? Yes
--- NOTE | 2023-11-26 12:51 | NUR.NOTE ---
attempted PO challenge, pt reports I didn't hold any of that down was seen holding trash can but no vomit noted per this RN, but pt only ate two bites of jello and two bites of sherbert, and couple sips of broth, findings reported to provider :
[2023-11-26 13:01] VITALS: BP 119/62; PULSE 74; RESP 16; TEMP 37.3; O2SAT 100
== END 2023-11-26 13:53 | disposition home or self-care (01) ==
PROVIDERS: Emergency Provider Physician Assistant; PCP Nurse Practitioner Family
DX: R11.2 Nausea with vomiting, unspecified (principal); E86.0 Dehydration; R10.9 Unspecified abdominal pain
CPT/HCPCS: 80048; 80076; 82550; 83690; 96361; 96374; 96375; 99284; 81003; 81015; 82150; 83605; 83735; 84443; 85025; 87086; 99283; J1200; J2765

== ENCOUNTER 2024-01-28 13:03 | Outpatient (REF) | payer OTHER, SELFPAY | END 2024-01-28 13:04 | disposition home or self-care (01) | LOC: LBN 13:03 | PROVIDERS: PCP Nurse Practitioner Family; Visit Provider Physician Assistant Medical | DX: J02.9 Acute pharyngitis, unspecified (principal) | CPT/HCPCS: 87077; 87070 ==

== ENCOUNTER 2024-06-29 16:56 | Outpatient (REF) | payer OTHER, SELFPAY ==
[2024-06-29 19:22] LABS: Abs Immature Grans 0.03 10^3/uL (0.0-0.06); Absolute Eosinophil Count 0.11 10^3/uL (0.0-0.7); Absolute Lymphocyte Count 1.98 10^3/uL (1.2-3.4); Absolute Monocyte Count 0.54 10^3/uL (0.1-0.8); Absolute Neutrophil Count 4.85 10^3/uL (1.2-6.7); Basophils % 1.3 %; Eosinophils % 1.4 %; HCT 50.6 % (36.0-46.0); HGB 16.9 g/dL (11.2-15.7); Immature Grans % 0.4 %; MCH 29.9 pg (27.0-33.0); MCHC 33.4 % (32.0-36.0); MCV 89 fL (80-95); MPV 10.4 fL (8.0-11.0); Monocytes % 7.1 %; Neutrophils % 63.8 %; Platelet Count 352 10^3/uL (130-400); RBC 5.66 10^6/uL (3.93-5.22); RDW 11.9 % (11.7-14.6); RDW-SD 39.2 fL; WBC 7.61 10^3/uL (4.4-10.8)
[2024-06-29 19:39] LABS: ALT 26 U/L (14-59); AST 27 U/L (15-37); Albumin 4.7 g/dL (3.4-5.0); Alkaline Phosphatase 93 U/L (46-116); Anion Gap 10.5 mmol/L (3-11); BUN 15 mg/dL (7-18); Bilirubin, Total 0.33 mg/dL (0.2-1.0); CO2 27.5 mmol/L (21.0-32.0); CREATININE 1.1 mg/dL (0.55-1.02); Calcium 9.3 mg/dL (8.5-10.1); Chloride 105 mmol/L (98-107); Estimated GFR 72.86 (mL/min/1.73m2); Glucose 88 mg/dL (74-106); Potassium 4.4 mmol/L (3.5-5.1); Sodium 143 mmol/L (136-145)
== END 2024-06-29 16:57 | disposition home or self-care (01) ==
LOC: NCHCN 16:56
PROVIDERS: PCP Nurse Practitioner Family; Visit Provider Nurse Practitioner Family
DX: R53.83 Other fatigue (principal)
CPT/HCPCS: 80053; 85025